=== PATIENT | male | born 1960 | race Caucasian/White ===

== ENCOUNTER 2017-05-23 01:18 | Inpatient (IN) | payer MEDICARE ==
[2017-05-23 01:34] VITALS: BMI 27.8
--- NOTE | 2017-05-23 01:44 | C.PDOC ---
History Of Present Illness 56 year old male with Hx of hepatitis, cirrhosis and liver cancer presents to the ED requesting detox for alcohol and heroin use. Patient denies any IV drug use and states he has not follow up recently with his PMD regarding his chronic conditions. Patient denies any previous hx of seizure or withdrawal .Denies SI/ HI, hallucinations, physical complaints. Time Seen by Provider: 05/23/17 01:35 Chief Complaint (Nursing): Substance Abuse History Per: Patient History/Exam Limitations: no limitations Onset/Duration Of Symptoms: Hrs Current Symptoms Are (Timing): Gone Modifying Factor(s): Alcohol, Other (Heroin) Associated Symptoms: denies: Depression, Suicidal Thoughts, Suicidal Plan Recent travel outside of the [place]: No Additional History Per: Patient Past Medical History Reviewed: Historical Data, Nursing Documentation, Vital Signs Vital Signs: Last Vital Signs Temp 98.8 F 05/23/17 05:19 Pulse 76 05/23/17 05:19 Resp 20 05/23/17 05:19 BP 127/65 05/23/17 05:19 Pulse Ox 95 05/23/17 05:20 - Medical History Other PMH: Liver cancer, cirrhosis Surgical History: No Surg Hx Family History: States: Unknown Family Hx - Social History Hx Tobacco Use: Yes Hx Alcohol Use: Yes Hx Substance Use: Yes (heroin and crack) - Immunization History Hx Tetanus Toxoid Vaccination: No Hx Influenza Vaccination: Yes Hx Pneumococcal Vaccination: No Review Of Systems Constitutional: Negative for: Fever, Chills Cardiovascular: Negative for: Chest Pain, Palpitations Respiratory: Negative for: Cough Gastrointestinal: Negative for: Nausea, Vomiting, Abdominal Pain Skin: Negative for: Rash Neurological: Negative for: Weakness, Numbness Psych: Negative for: Depression, Suicidal ideation Physical Exam - Physical Exam Appears: Non-toxic, No Acute Distress, Unkempt Skin: Normal Color, Warm, Dry Head: Atraumatic, Normacephalic Eye(s): bilateral: Normal Inspection, EOMI Nose: No Discharge, No Deformity Oral Mucosa: Moist Neck: Normal ROM, Supple Chest: Symmetrical Cardiovascular: Rhythm Regular Respiratory: Normal Breath Sounds, No Rales, No Rhonchi, No Wheezing Gastrointestinal/Abdominal: Soft, No Tenderness, No Guarding, No Rebound Extremity: Normal ROM, No Pedal Edema, No Calf Tenderness, No Deformity, No Swelling Neurological/Psych: Oriented x3, Normal Speech, Normal Cognition Gait: Steady ED Course And Treatment - Laboratory Results Result Diagrams: 05/23/17 02:04 05/23/17 05:08 O2 Sat by Pulse Oximetry: 95 (On RA) - CT Scan/US US abdomen Other Rad Studies (CT/US): Read By Radiologist, Radiology Report Reviewed CT/US Interpretation: EXAM: US Abdomen Limited, Right Upper Quadrant. CLINICAL HISTORY: 56 years old, male; Pain; Abdominal pain; Generalized; Additional info: Ruq pain, h/o ca. TECHNIQUE: Real-time ultrasound of the right upper quadrant with image documentation. COMPARISON: No relevant prior studies available. FINDINGS: Limitations: Body habitus. Overlying bowel gas. Liver: Fatty infiltration. Several heterogeneous masses, up to 7.0 cm in size. No intrahepatic ductal. dilatation. Gallbladder: Gallbladder not visualized. Common bile duct: No dilatation. No stones. Pancreas: Unremarkable as visualized. Right kidney: Normal echogenicity. No hydronephrosis. IMPRESSION: 1. Hepatic lesions compatible with history of malignancy/metastases. 2. Incidental/non-acute findings are described above. Progress Note: Plan: -Labs. -UA. -IV fluids. Pt will be admitted to medicine for hyponatremia with detox consult. Disposition - Disposition Disposition: HOSPITALIZED Disposition Time: 06:02 Condition: STABLE Forms: [facility] ([place]) - Clinical Impression Clinical Impression: Opioid dependence, Hyponatremia, Elevated LFTs - PA / CLOTH PACKER / Resident Statement MD/DO has reviewed & agrees with the documentation as recorded. - Scribe Statement The provider has reviewed the documentation as recorded by the Scribe Servando Bender All medical record entries made by the Scribe were at my direction and personally dictated by me. I have reviewed the chart and agree that the record accurately reflects my personal performance of the history, physical exam, medical decision making, and the department course for this patient. I have also personally directed, reviewed, and agree with the discharge instructions and disposition.
[2017-05-23 02:07] LABS: BASO # 0.1 K/uL (0.0-0.2); BASO % 0.8 % (0.0-2.0); EOS # 0.1 K/uL (0.0-0.7); EOS % 0.6 % (0.0-4.0); HEMOGLOBIN 14.3 g/dL (12.0-18.0); MEAN CELL VOLUME 91.4 fL (80.0-94.0); MEAN CORPUSCULAR HEMOGLOBIN 31.9 pg (27.0-31.0); MEAN CORPUSCULAR HGB CONC 34.9 g/dL (33.0-37.0); MEAN PLATELET VOLUME 9.5 fL (7.2-11.7); MONO # 0.7 K/uL (0.0-0.8); MONO % 7.9 % (0.0-10.0); NEUT # 6.5 K/uL (1.8-7.0); NEUT % 78.7 % (50.0-75.0); RBC 4.47 Mil/uL (4.40-5.90); RED CELL DISTRIBUTION WIDTH 15.1 % (11.5-14.5); WHITE BLOOD COUNT 8.3 K/uL (4.8-10.8)
[2017-05-23 02:17] LABS: SQUAMOUS EPITHIAL 2 /hpf (0-5); URINE BILIRUBIN 1+ (NEGATIVE); URINE CLARITY Clear (Clear); URINE COLOR Amber (YELLOW); URINE GLUCOSE (UA) NORMAL (Normal); URINE LEUKOCYTE ESTERASE NEG Leu/uL (Negative); URINE NITRATE NEGATIVE (NEGATIVE); URINE PROTEIN 1+ mg/dL (NEGATIVE)
[2017-05-23 02:19] LABS: URINE BLOOD NEGATIVE (NEGATIVE)
[2017-05-23 02:27] LABS: ALB/GLOB RATIO 0.9 (1.0-2.1); ALBUMIN 3.5 g/dL (3.5-5.0); ALT/SGPT 147 U/L (21-72); AST/SGOT 167 U/L (17-59); BARBITURATES, UR NEGATIVE (NEGATIVE); BENZODIAZEPINES, UR NEGATIVE (NEGATIVE); BLOOD UREA NITROGEN 21 mg/dL (9-20); GFR AFRICAN-AMERICAN > 60; GFR NON-AFRICAN AMERICAN > 60; PHENCYCLIDINE, UR NEGATIVE (NEGATIVE)
[2017-05-23] MEDS ORDERED: Sodium Chloride 0.9% 1,000 ML IV ONE ×2 (02:31→02:55)
[2017-05-23] MEDS ORDERED: Sodium Chloride 0.9% 1,000 ML ONE ×2 (02:42→03:39)
[2017-05-23 02:56] LABS: OPIATES, UR POSITIVE (NEGATIVE)
--- NOTE | 2017-05-23 05:19 | US ---
EXAM: US Abdomen Limited, Right Upper Quadrant CLINICAL HISTORY: 56 years old, male; Pain; Abdominal pain; Generalized; Additional info: Ruq pain, h/o ca TECHNIQUE: Real-time ultrasound of the right upper quadrant with image documentation. COMPARISON: No relevant prior studies available. FINDINGS: Limitations: Body habitus. Overlying bowel gas. Liver: Fatty infiltration. Several heterogeneous masses, up to 7.0 cm in size. No intrahepatic ductal dilatation. Gallbladder: Gallbladder not visualized. Common bile duct: No dilatation. No stones. Pancreas: Unremarkable as visualized. Right kidney: Normal echogenicity. No hydronephrosis. IMPRESSION: 1. Hepatic lesions compatible with history of malignancy/metastases. 2. Incidental/non-acute findings are described above.
[2017-05-23 05:24] LABS: ALT/SGPT 134 U/L (21-72); AST/SGOT 144 U/L (17-59); BLOOD UREA NITROGEN 20 mg/dL (9-20); CALCIUM 7.4 mg/dl (8.6-10.4); GFR AFRICAN-AMERICAN > 60; GFR NON-AFRICAN AMERICAN > 60
[2017-05-23 05:25] LABS: ALB/GLOB RATIO 0.8 (1.0-2.1)
[2017-05-23] MEDS ORDERED: Multivitamin (MVI) 10 ML, Thiamine 100 MG, Folic Acid 1 MG in Sodium Chloride 0.9% 1,00... IV ONE ×2 (09:19→10:00)
[2017-05-23 12:08] LABS: INR 1.6; PROTHROMBIN TIME 18.8 SECONDS (9.7-12.2)
--- NOTE | 2017-05-23 16:41 | CP.PCM.HP ---
History of Present Illness - History of Present Illness History of Present Illness: Dr. Sparks's Service, Onur Vidales, Teaching Associate-PGY-1 CC: Alcohol withdrawal and heroin detox Patient is a 56-year-old male with a PMHx of hepatitis, cirrhosis, and liver cancer who presents to the ED requesting detox for alcohol and heroin use. Patient states that he gets really bad runs, and clarifies that when he withdraws from alcohol, the gets diarrhea, chest pain, a runny nose, abdominal pain, nausea and vomiting. The chest pain comes and goes and is worse with inspiration. He denies any seizure history. Patient drinks alcohol and uses heroin daily, and frequently uses cocaine. He denies suicidal ideations and hallucinations. Patient states that he has two daughters and that he has been hiding these habits from them. He says that he needs to stop for them. Patient says that hes tried Suboxone from the streets and has never used methadone. Patient was diagnosed with liver cancer 20 years ago and was treated with Nexavar chemotherapy pills. He states that he hasnt seen a doctor for a long time and hasnt received treatment for his liver cancer for over 8 years. Patient denies any shortness of breath, headaches, fevers, chills, abdominal pain, nausea, vomiting, changes in vision, or any other complaints. Past medical history: Hepatitis, Cirrhosis, Liver cancers Medications: MAR reviewed. Allergies: Olvin Past surgical history: Bilateral knee surgeries, appendectomy Family History: Denies Social history: Tobacco 1/2 pack for 42 years. Drinks 3, 32oz. beer Present on Admission - Present on Admission Any Indicators Present on Admission: No Review of Systems - Constitutional Constitutional: absent: Chills, Headache, Night Sweats, Snoring, Weakness - EENT Eyes: absent: Blurred Vision, Discharge, Sees Flashes, Other Visual Disturbances , Loss of Vision Ears: absent: Decreased Hearing, Disequilibrium, Dizziness Nose/Mouth/Throat: absent: Nasal Congestion, Nose Pain, Bleeding Gums, Halitosis , Mouth Pain, Neck Pain - Cardiovascular Cardiovascular: Chest Pain. absent: Diaphoresis, Irregular Heart Rhythm, Leg Edema, Palpitations, Syncope - Respiratory Respiratory: absent: Hemoptysis, Wheezing, Snoring, Pain on Inspiration - Gastrointestinal Gastrointestinal: absent: Belching, Diarrhea, Dyspepsia, Fecal Incontinence, Vomiting - Genitourinary Genitourinary: absent: Change in Urinary Stream, Nocturia, Urinary Urgency - Musculoskeletal Musculoskeletal: absent: Arthralgias, Stiffness, Tingling - Integumentary Integumentary: absent: Rash - Neurological Neurological: absent: Dizziness, Numbness, Syncope, Vertigo, Weakness - Psychiatric Psychiatric: absent: Anxiety, Hopelessness, Panic Attacks - Endocrine Endocrine: absent: Polydipsia, Polyphagia, Polyuria Past Patient History - Infectious Disease Hx of Infectious Diseases: None - Past Medical History & Family History Past Medical History?: Yes - Past Social History Smoking Status: Heavy Smoker > 10 Cigarettes Daily - CARDIAC Hx Cardiac Disorders: No - PULMONARY Hx Respiratory Disorders: No - NEUROLOGICAL Hx Neurological Disorder: No - HEENT Hx HEENT Problems: No - RENAL Hx Chronic Kidney Disease: No - ENDOCRINE/METABOLIC Hx Endocrine Disorders: No - HEMATOLOGICAL/ONCOLOGICAL Hx AIDS: No Hx Anemia: No Hx Blood Transfusions: No Hx Blood Transfusion Reaction: No Hx Bruising: No Hx Cancer: Yes (liver) Hx Chemotherapy: No Hx Cirrhosis: Yes Hx Gum Bleeding: No Hx Hemophilia: No Hx Hepatitis A: No Hx Hepatitis B: No Hx Hepatitis C: Yes Hx Human Immunodeficiency Virus (HIV): No Hx Leukemia: No Hx Metastesis: No Hx Shingles: No Hx Sickle Cell Disease: No Hx Unexplained Bleeding: No Hx von Willebrand's Disease: No - INTEGUMENTARY Hx Dermatological Problems: No - MUSCULOSKELETAL/RHEUMATOLOGICAL Hx Musculoskeletal Disorders: No Hx Falls: No - GASTROINTESTINAL Hx Bowel Surgery: No Hx Clostridium Difficile: No Hx Colitis: No Hx Colostomy: No Hx Constipation: No Hx Crohn's Disease: No Hx Diarrhea: No Hx Diverticulitis: No Hx Esophageal Varices: No Hx Fatty Liver Disease: No Hx Gall Bladder Disease: No Hx Gastritis: No Hx Gastroesophageal Reflux: No Hx Hemorrhoids: No Hx Ileostomy: No Hx Irritable Bowel: No Hx Liver Failure: No Hx Nausea: No Hx Pancreatitis: No HX Swallowing Problems: No Hx Ulcer: No Hx Vomiting: No Other/Comment: H/O hepatitis,cirrhosis and Liver Cancer - GENITOURINARY/GYNECOLOGICAL Hx Genitourinary Disorders: No - PSYCHIATRIC Hx Anxiety: No Hx Bipolar Disorder: No Hx Depression: No Hx Emotional Abuse: No Hx Hallucinations: No Hx Panic Symptoms: No Hx Paranoia: No Hx Post Traumatic Stress Disorder: No Hx Psychosis: No Hx Physical Abuse: No Hx Schizophrenia: No Hx Sexual Abuse: No Hx Substance Use: Yes (heroin and crack) - SURGICAL HISTORY Hx Surgeries: Yes Hx Orthopedic Surgery: Yes (L knee and L ankle) - ANESTHESIA Hx Anesthesia: Yes Hx Anesthesia Reactions: No Hx Malignant Hyperthermia: No Has any member of the family had a problem w/ anesthesia?: No Meds Allergies/Adverse Reactions: Allergies Allergy/AdvReac Type Severity Reaction Status Date / Time No Known Allergies Allergy Verified 05/23/17 01:33 Physical Exam - Head Exam Head Exam: ATRAUMATIC, NORMAL INSPECTION, NORMOCEPHALIC - Eye Exam Eye Exam: EOMI, Normal appearance, PERRL. absent: Periorbital tenderness Pupil Exam: NORMAL ACCOMODATION, PERRL. absent: Irregular, Unequal - ENT Exam ENT Exam: Mucous Membranes Moist, Normal Oropharynx - Neck Exam Neck exam: Positive for: Normal Inspection. Negative for: Lymphadenopathy, Thyromegaly - Respiratory Exam Respiratory Exam: Clear to Auscultation Bilateral, NORMAL BREATHING PATTERN. absent: Chest Wall Tenderness, Prolonged Expiratory Phase, Respiratory Distress - Cardiovascular Exam Cardiovascular Exam: REGULAR RHYTHM, RRR, +S1, +S2. absent: Gallop, Rubs - GI/Abdominal Exam GI & Abdominal Exam: Normal Bowel Sounds, Soft. absent: Distended, Hypoactive Bowel Sounds, Organomegaly, Rigid - Extremities Exam Extremities exam: Positive for: full ROM, normal inspection. Negative for: joint swelling, pedal edema, tenderness - Back Exam Back exam: NORMAL INSPECTION. absent: CVA tenderness (L), CVA tenderness (R), paraspinal tenderness - Neurological Exam Neurological exam: Alert, CN II-XII Intact, Oriented x3 - Psychiatric Exam Psychiatric exam: Normal Affect, Normal Mood - Skin Skin Exam: Dry, Intact, Normal Color, Warm Results - Vital Signs Recent Vital Signs: Last Vital Signs Temp 98.3 F 05/23/17 08:10 Pulse 78 05/23/17 08:10 Resp 20 05/23/17 08:10 BP 116/68 05/23/17 08:10 Pulse Ox 97 05/23/17 08:10 - Labs Result Diagrams: 05/23/17 02:04 05/23/17 05:08 Labs: Laboratory Results - last 24 hr 05/23/17 05/23/17 05/23/17 02:04 02:04 02:04 WBC 8.3 RBC 4.47 Hgb 14.3 Hct 40.8 MCV 91.4 D MCH 31.9 H MCHC 34.9 RDW 15.1 H Plt Count 126 L D MPV 9.5 Neut % (Auto) 78.7 H Lymph % (Auto) 12.0 L [place] % (Auto) 7.9 Eos % (Auto) 0.6 Baso % (Auto) 0.8 Neut # 6.5 Lymph # 1.0 [place] # 0.7 Eos # 0.1 Baso # 0.1 PT INR Sodium 125 L Potassium 4.6 Chloride 95 L Carbon Dioxide 21 L Anion Gap 14 BUN 21 H Creatinine 1.0 Est GFR ( Amer) > 60 Est GFR (Non-Af Amer) > 60 Random Glucose 112 H Calcium 8.0 L Total Bilirubin 3.1 H AST 167 H ALT 147 H D Alkaline Phosphatase 169 H Total Protein 7.5 Albumin 3.5 Globulin 3.9 Albumin/Globulin Ratio 0.9 L Urine Color [place] Urine Clarity Clear Urine pH 5.0 Ur Specific [place] 1.024 Urine Protein 1+ H Urine Glucose (UA) Normal Urine Ketones Negative Urine Blood Negative Urine Nitrate Negative Urine Bilirubin 1+ H Urine Urobilinogen 4.0 Ur Leukocyte Esterase Neg Urine WBC (Auto) 16 H Urine RBC (Auto) 2 Ur Squamous Epith Cells 2 Urine Opiates Screen Urine Methadone Screen Ur Barbiturates Screen Ur Phencyclidine Scrn Ur Amphetamines Screen U Benzodiazepines Scrn U Oth Cocaine Metabols U Cannabinoids Screen Alcohol, Quantitative < 10 05/23/17 05/23/17 05/23/17 02:04 05:08 11:53 WBC RBC Hgb Hct MCV MCH MCHC RDW Plt Count MPV Neut % (Auto) Lymph % (Auto) [place] % (Auto) Eos % (Auto) Baso % (Auto) Neut # Lymph # [place] # Eos # Baso # PT 18.8 H INR 1.6 Sodium 126 L Potassium 4.0 Chloride 99 Carbon Dioxide 24 Anion Gap 7 L BUN 20 Creatinine 0.9 Est GFR ( Amer) > 60 Est GFR (Non-Af Amer) > 60 Random Glucose 101 Calcium 7.4 L Total Bilirubin 2.1 H AST 144 H ALT 134 H Alkaline Phosphatase 151 H Total Protein 6.5 Albumin 3.0 L Globulin 3.5 Albumin/Globulin Ratio 0.8 L Urine Color Urine Clarity Urine pH Ur Specific [place] Urine Protein Urine Glucose (UA) Urine Ketones Urine Blood Urine Nitrate Urine Bilirubin Urine Urobilinogen Ur Leukocyte Esterase Urine WBC (Auto) Urine RBC (Auto) Ur Squamous Epith Cells Urine Opiates Screen Positive H Urine Methadone Screen Negative Ur Barbiturates Screen Negative Ur Phencyclidine Scrn Negative Ur Amphetamines Screen Negative U Benzodiazepines Scrn Negative U Oth Cocaine Metabols Positive H U Cannabinoids Screen Negative Alcohol, Quantitative Assessment & Plan - Assessment and Plan (Free Text) Assessment: 56 year old male with a past medical history of hepatitis, liver cirrhosis, liver carcinoma who was admitted for detox from alcohol and heroin abuse. Plan: Alcohol withdrawal/ Heroin Detox -CIWA Precautions -Fall precautions -Seizure precautions -Ativan 1mg Q2 PRN -Ativan 2mg Q6 JOSE ANGEL -Patient agreeable to detox. Liver Cancer -Patient was diagnosed 20 years ago. -Patient no longer reciving treatment due to financial constraints. -Consider Liver Specialist consult if necessary in the future. Liver Cirrhosis 2/2 to Alcohol Abuse -Patient currently not being followed by a specialist. -Stable -Consider GI consult. Prophylaxis -Heparin 500units Q12 -Pepcid 20mg BID
[2017-05-24 08:38] LABS: BASO # 0.1 K/uL (0.0-0.2); BASO % 1.9 % (0.0-2.0); EOS % 0.5 % (0.0-4.0); HEMOGLOBIN 13.8 g/dL (12.0-18.0); LYMPH # 0.7 K/uL (1.0-4.3); LYMPH % 12.7 % (20.0-40.0); MEAN CELL VOLUME 90.7 fL (80.0-94.0); MEAN CORPUSCULAR HGB CONC 35.3 g/dL (33.0-37.0); MEAN PLATELET VOLUME 9.8 fL (7.2-11.7); MONO # 0.5 K/uL (0.0-0.8); MONO % 9.2 % (0.0-10.0); NEUT # 4.3 K/uL (1.8-7.0); NEUT % 75.7 % (50.0-75.0); NRBC % 0.1 % (0.0-2.0); RBC 4.32 Mil/uL (4.40-5.90); RED CELL DISTRIBUTION WIDTH 15.3 % (11.5-14.5); WHITE BLOOD COUNT 5.7 K/uL (4.8-10.8)
[2017-05-24 09:08] LABS: ALB/GLOB RATIO 0.8 (1.0-2.1); ALT/SGPT 129 U/L (21-72); AST/SGOT 150 U/L (17-59); BLOOD UREA NITROGEN 13 mg/dL (9-20); CALCIUM 7.8 mg/dl (8.6-10.4); GFR AFRICAN-AMERICAN > 60; GFR NON-AFRICAN AMERICAN > 60
[2017-05-24] MEDS ORDERED: Multivitamin (MVI) 10 ML, Thiamine 100 MG, Folic Acid 1 MG in Sodium Chloride 0.9% 1,00... IV ONE (10:00)
--- NOTE | 2017-05-24 19:31 | CP.PCM.PN ---
<Onur Vidales - Last Filed: 05/24/17 19:35> Subjective - Date & Time of Evaluation Date of Evaluation: 05/24/17 Time of Evaluation: 08:31 - Subjective Subjective: Dr. Sparks's Service, Onur Vidales Accounts Specialist-PGY1 Patient seen and examined at bedside. Per nursing no acute events occurred overnight. The patient is reports not feeling too well today. The patient repots one episode of diarrhea today. The patient denies any lightheadedness , dizziness ,changes in vision, headache, chest pain, fevers, chills, abdominal pain, or any other complaints. Objective - Vital Signs/Intake and Output Vital Signs (last 24 hours): Temp Pulse Resp BP Pulse Ox 98.9 F 73 20 138/75 95 05/24/17 17:06 05/24/17 17:06 05/24/17 17:06 05/24/17 17:06 05/24/17 17:06 Intake and Output: 05/24/17 05/25/17 18:59 06:59 Intake Total 500 Balance 500 - Medications Medications: Current Medications Famotidine (Pepcid) 20 mg PO BID [facility] Last Admin: 05/24/17 17:11 Dose: 20 mg Heparin Sodium (Porcine) (Heparin) 5,000 units SC Q12 [facility] Last Admin: 05/24/17 10:59 Dose: 5,000 units Multivitamins/Vitamin C 10 ml/Thiamine HCl 100 mg/ Folic Acid 1 mg/ Sodium Chloride 1,011.2 mls @ 100 mls/hr IV .Q10H7M ONE Stop: 05/24/17 20:06 Last Admin: 05/24/17 11:36 Dose: 100 mls/hr Lorazepam (Ativan) 1 mg IVP Q2H PRN PRN Reason: Symptoms of alcohol withdrawl Last Admin: 05/24/17 10:59 Dose: 1 mg Lorazepam (Ativan) 2 mg IVP Q6H JOSE ANGEL PRN Reason: Taper Stop: 05/28/17 18:29 Last Admin: 05/24/17 17:56 Dose: 2 mg Pneumococcal Polyvalent Vaccine (Pneumovax 23 Vaccine) 0.5 ml IM .ONCE ONE Stop: 05/25/17 10:01 - Labs Labs: 05/24/17 08:21 05/24/17 08:21 PT 18.8 SECONDS (9.7-12.2) H 05/23/17 11:53 INR 1.6 05/23/17 11:53 - Head Exam Head Exam: ATRAUMATIC, NORMAL INSPECTION, NORMOCEPHALIC - Eye Exam Eye Exam: EOMI, Normal appearance, PERRL. absent: Periorbital tenderness Pupil Exam: NORMAL ACCOMODATION, PERRL. absent: Irregular, Unequal - ENT Exam ENT Exam: Mucous Membranes Moist, Normal Exam, Normal Oropharynx - Neck Exam Neck Exam: absent: Lymphadenopathy, Thyromegaly - Respiratory Exam Respiratory Exam: Clear to Ausculation Bilateral, NORMAL BREATHING PATTERN. absent: Chest Wall Tenderness, Prolonged Expiratory Phase, Respiratory Distress - Cardiovascular Exam Cardiovascular Exam: REGULAR RHYTHM, RRR, +S1, +S2. absent: Gallop - GI/Abdominal Exam GI & Abdominal Exam: Soft, Normal Bowel Sounds. absent: Rigid, Hyperactive Bowel Sounds - Extremities Exam Extremities Exam: Full ROM, Normal Inspection. absent: Joint Swelling, Pedal Edema, Tenderness - Back Exam Back Exam: NORMAL INSPECTION. absent: CVA tenderness (L), CVA tenderness (R), paraspinal tenderness - Neurological Exam Neurological Exam: Alert, Awake, CN II-XII Intact, Normal Gait, Oriented x3 - Psychiatric Exam Psychiatric exam: Normal Affect, Normal Mood. absent: Depressed, Flat Affect - Skin Skin Exam: Dry, Intact, Normal Color Assessment and Plan - Assessment and Plan (Free Text) Assessment: 56 year old male with a past medical history of hepatitis, liver cirrhosis, liver carcinoma who was admitted for detox from alcohol and heroin abuse. Plan: Alcohol withdrawal/ Heroin Detox -Continue CIWA Precautions -Continue Fall precautions -Seizure precautions -Ativan 1mg Q2 PRN -Ativan 2mg Q6 JOSE ANGEL -Patient agreeable to detox. Patient stable. No active signs of detox. Will continue to monitor. Liver Cancer -Patient was diagnosed 20 years ago. -Patient no longer receiving treatment due to financial constraints. -Consider Liver Specialist consult if necessary in the future. Liver Cirrhosis 2/2 to Alcohol Abuse -Patient currently not being followed by a specialist. -Stable -Consider GI consult. Prophylaxis -Heparin 500units Q12 -Pepcid 20mg BID <Taye Sparks Jr. - Last Filed: 05/30/17 19:15> Objective - Vital Signs/Intake and Output Vital Signs (last 24 hours): Temp Pulse Resp BP Pulse Ox 97.2 F L 68 18 123/77 98 05/30/17 09:59 05/30/17 09:59 05/30/17 09:59 05/30/17 09:59 05/30/17 09:59 - Labs Labs: 05/30/17 08:39 05/30/17 08:39 PT 18.8 SECONDS (9.7-12.2) H 05/23/17 11:53 INR 1.6 05/23/17 11:53 Attending/Attestation - Attestation I have personally seen and examined this patient.: Yes I have fully participated in the care of the patient.: Yes I have reviewed all pertinent clinical information, including history, physical exam and plan: Yes Notes (Text): 05/30/17 19:15 Agree with resident note and plan of care
--- NOTE | 2017-05-25 06:37 | CP.PCM.PN ---
<Susie Stoner - Last Filed: 05/25/17 06:34> Subjective - Date & Time of Evaluation Date of Evaluation: 05/25/17 Time of Evaluation: 06:34 - Subjective Subjective: Medicine progress note for Dr. Sparks's service Patient was seen and examined at bedside in the morning. Patient reports feeling withdrawal symptoms, nausea, feeling like he wants to vomit, chills, and diarrhea. Patient denies having chest pain, abdominal pain, shortness of breath, leg pain. Objective - Vital Signs/Intake and Output Vital Signs (last 24 hours): Temp Pulse Resp BP Pulse Ox 99.2 F 74 20 117/60 96 05/25/17 00:00 05/25/17 00:00 05/25/17 00:00 05/25/17 00:00 05/25/17 00:00 Intake and Output: 05/24/17 05/25/17 18:59 06:59 Intake Total 500 440 Balance 500 440 - Medications Medications: Current Medications Famotidine (Pepcid) 20 mg PO BID [facility] Last Admin: 05/24/17 17:11 Dose: 20 mg Heparin Sodium (Porcine) (Heparin) 5,000 units SC Q12 [facility] Last Admin: 05/24/17 21:59 Dose: 5,000 units Lorazepam (Ativan) 1 mg IVP Q2H PRN PRN Reason: Symptoms of alcohol withdrawl Last Admin: 05/24/17 10:59 Dose: 1 mg Lorazepam (Ativan) 2 mg IVP Q6H [facility] PRN Reason: Taper Stop: 05/28/17 18:29 Last Admin: 05/25/17 06:22 Dose: 2 mg Pneumococcal Polyvalent Vaccine (Pneumovax 23 Vaccine) 0.5 ml IM .ONCE ONE Stop: 05/25/17 10:01 - Labs Labs: 05/24/17 08:21 05/24/17 08:21 PT 18.8 SECONDS (9.7-12.2) H 05/23/17 11:53 INR 1.6 05/23/17 11:53 - Constitutional Appears: Other (withdrawal) - Head Exam Head Exam: ATRAUMATIC, NORMOCEPHALIC - Eye Exam Eye Exam: EOMI - ENT Exam ENT Exam: Mucous Membranes Moist - Respiratory Exam Respiratory Exam: NORMAL BREATHING PATTERN. absent: Rales, Rhonchi, Wheezes, Respiratory Distress - Cardiovascular Exam Cardiovascular Exam: REGULAR RHYTHM, +S1, +S2 - GI/Abdominal Exam GI & Abdominal Exam: Soft, Normal Bowel Sounds. absent: Distended, Firm, Guarding, Tenderness - Extremities Exam Extremities Exam: absent: Pedal Edema, Tenderness - Neurological Exam Neurological Exam: Alert, Awake - Psychiatric Exam Psychiatric exam: Anxious - Skin Skin Exam: Diaphoretic, Intact, Warm Assessment and Plan - Assessment and Plan (Free Text) Plan: Assessment: 56 year old male with a past medical history of hepatitis, liver cirrhosis, liver carcinoma who was admitted for detox from alcohol and heroin abuse. Patient was not taken to detox due to hyponatremia. Patient waiting to go to detox. Psychiatry consulted. Plan: Alcohol withdrawal/ Heroin Detox -Continue CIWA Precautions -Continue Fall precautions -Seizure precautions -Ativan 1mg Q2 PRN -Ativan 2mg Q6 JOSE ANGEL -Patient agreeable to detox. Patient stable. No active signs of detox. Will continue to monitor. -Clonidine 0.1mg PO once prn for withdrawal symptoms ordered (05/25/17) -Psychiatry consulted; Dr. Beckham Liver Cancer -Patient was diagnosed 20 years ago. -Patient no longer receiving treatment due to financial constraints. -Consider Liver Specialist consult if necessary in the future. Liver Cirrhosis 2/2 to Alcohol Abuse -Patient currently not being followed by a specialist. -Stable -Consider GI consult. Prophylaxis -Heparin 500units Q12 -Pepcid 20mg BID <Taye Sparks Jr. - Last Filed: 05/30/17 19:17> Objective - Vital Signs/Intake and Output Vital Signs (last 24 hours): Temp Pulse Resp BP Pulse Ox 97.2 F L 68 18 123/77 98 05/30/17 09:59 05/30/17 09:59 05/30/17 09:59 05/30/17 09:59 05/30/17 09:59 - Labs Labs: 05/30/17 08:39 05/30/17 08:39 PT 18.8 SECONDS (9.7-12.2) H 05/23/17 11:53 INR 1.6 05/23/17 11:53 Attending/Attestation - Attestation I have personally seen and examined this patient.: Yes I have fully participated in the care of the patient.: Yes I have reviewed all pertinent clinical information, including history, physical exam and plan: Yes Notes (Text): 05/30/17 19:17 Agree with resident note and plan of care
--- NOTE | 2017-05-25 09:36 | PCM.PSYCH ---
Initial Psychiatric Evaluation - Initial Psychiatric Evaluation Type of Admission: Voluntary Chief Complaint (in patient's own words): "Tired" History of Present Illness and Precipitating Events: The pt is seen, chart reviewed and case discussed Consult was requested for his alcohol and opioid use. He is a 56 yo LM, single with children. Very poor historian due to worsening cognition, sedated and somewhat confused He is put on ativan taper for alcohol but methadone taper was not started as he did not have significant withdrawal yesterday. However, now, he is withdrawing from both alcohol and opioids. He is also running a fever and may have an infection. On top of that his Na is low, liver is impaired (liver cancer confirmed and had been treated in the past; r/o hepatitis). Therefore, he is likely getting into delirium from multiple causes. He reported that he uses cocaine and 10 bags heroin for "years" both intranasally. He was not clear about alcohol - "3 cans of 33 oz" but it may be more. No hx of DTs or seizures - needs to be confirmed Denies psych hx Medical - liver cancer Family psych or addiction unknown Current Medications: Active Medications Generic Name Dose Route Start Last Admin Trade Name Freq PRN Reason Stop Dose Admin Clonidine HCl 0.1 mg 05/25/17 06:48 05/25/17 07:13 Catapres PO 0.1 mg ONCE PRN Administration Nausea/Vomiting Famotidine 20 mg 05/23/17 18:00 05/24/17 17:11 Pepcid PO 20 mg BID JOSE ANGEL Administration Heparin Sodium (Porcine) 5,000 units 05/23/17 22:00 05/24/17 21:59 Heparin SC 5,000 units Q12 JOSE ANGEL Administration Lorazepam 1 mg 05/23/17 09:18 05/24/17 10:59 Ativan IVP 1 mg Q2H PRN Administration Symptoms of alcohol withdrawl Lorazepam 0 mg 05/25/17 12:00 Ativan PO 05/29/17 11:59 .TAPER JOSE ANGEL Taper Methadone HCl 20 mg 05/25/17 09:45 Methadone PO 05/25/17 09:46 ONCE ONE Methadone HCl 0 mg 05/26/17 09:00 Methadone PO 05/30/17 08:59 Q24H JOSE ANGEL Taper Pneumococcal Polyvalent Vaccine 0.5 ml 05/25/17 10:00 Pneumovax 23 Vaccine IM 05/25/17 10:01 .ONCE ONE Past Psychiatric History - Past Psychiatric History Previous Treatment History: None Pertinent Medical Hx (Current Medical&Sleep Prob, Allergies): Allergies Allergy/AdvReac Type Severity Reaction Status Date / Time No Known Allergies Allergy Verified 05/23/17 01:33 No Known Home Med 05/23/17 Review of Systems - Review of Systems Systems not reviewed;Unavailable: Altered Mental Status - Neurological Neurological: Confusion - Psychiatric Psychiatric: Abnormal Sleep Pattern, Anxiety, Confusion. absent: Homicidal Ideation, Suicidal Ideation Mental Status Examination - Personal Presentation Personal Presentation: Looks stated age (restless, malodorous, poorly related) - Affect Affect: Constricted - Motor Activity Motor Activity: Other (restless) - Reliability in Providing Information Reliability in Providing Information: Fair - Speech Speech: Disorganized - Mood Mood: Anxious - Formal Thought Process Formal Thought Process: Other (disorganized) - Cognitive Functions Orientation: Person, Place (knows he is in the hospital) Sensorium: Drowsy Attention/Concentration: Easily distracted Abstract Thinking: [place] Estimate of Intelligence: Average Judgement: Intact, as evidence by: Insight regarding need for hospitalization Memory: Recent impaired, as evidence by: Inability to recall events of the day, Remote impaired as evidenced by: Inability to recall sig life events - Risk Risk: Seizure, Withdrawal, Diminished functioning - Strength & Assets Inventory Strength & Assets Inventory: Family support DSM 5 DX - DSM 5 DSM 5 Diagnosis: Delirium due to: rule out hepatic encephalopathy, hyponatremia, infection, DT, others Alcohol withdrawal Alcohol use d/o - severe Opioid use d/o - severe Opioid withdrawal Cocaine use d/o - severe - Recommended/Plan of Treatment Treatment Recommendations and Plan of Treatment: Close observation Consider 1:1 if mental status worsens IV fluids - stat (nurse made aware) Banana bag use motrin, not tylenol due to liver Treat underlying conditions (hyponatremia) Labs are ordered Ativan taper adjusted Methadone taper stated 35 min
[2017-05-25] MEDS ORDERED: Sodium Chloride 0.9% 1,000 ML IV ONE (09:45)
[2017-05-25] MEDS ORDERED: Influenza Vaccine 60 mcg/0.5 mL SYR (4YR UP) IM ONE (10:00)
[2017-05-25] MEDS ORDERED: Pneumococcal 23-Valent Vaccine IM ONE (10:00)
[2017-05-25 10:57] LABS: BASO % 0.5 % (0.0-2.0); EOS % 0.1 % (0.0-4.0); HEMOGLOBIN 13.5 g/dL (12.0-18.0); LYMPH # 0.8 K/uL (1.0-4.3); LYMPH % 10.7 % (20.0-40.0); MEAN CELL VOLUME 90.2 fL (80.0-94.0); MEAN CORPUSCULAR HEMOGLOBIN 31.3 pg (27.0-31.0); MEAN CORPUSCULAR HGB CONC 34.7 g/dL (33.0-37.0); MEAN PLATELET VOLUME 9.9 fL (7.2-11.7); MONO # 0.5 K/uL (0.0-0.8); MONO % 6.4 % (0.0-10.0); NEUT # 6.5 K/uL (1.8-7.0); NEUT % 82.3 % (50.0-75.0); NRBC % 0.1 % (0.0-2.0); RBC 4.31 Mil/uL (4.40-5.90); RED CELL DISTRIBUTION WIDTH 15.2 % (11.5-14.5); WHITE BLOOD COUNT 7.9 K/uL (4.8-10.8)
[2017-05-25 11:14] LABS: ALT/SGPT 118 U/L (21-72); AST/SGOT 137 U/L (17-59); BLOOD UREA NITROGEN 15 mg/dL (9-20); CALCIUM 7.8 mg/dl (8.6-10.4); GFR AFRICAN-AMERICAN > 60; GFR NON-AFRICAN AMERICAN > 60
[2017-05-25 11:29] LABS: ALB/GLOB RATIO 0.8 (1.0-2.1)
[2017-05-25 12:15] LABS: HEPATITIS B SURFACE AG NEGATIVE (NEGATIVE)
[2017-05-25 12:21] LABS: HEPATITIS B CORE AB Negative (NEGATIVE)
[2017-05-25 13:45] LABS: HEPATITIS A IGM REACTIVE (NEGATIVE); HEPATITIS C ANTIBODY Reactive (NEGATIVE)
[2017-05-25 20:04] LABS: SQUAMOUS EPITHIAL < 1 /hpf (0-5); URINE BACTERIA RARE (<OCC); URINE BILIRUBIN NEGATIVE (NEGATIVE); URINE BLOOD 1+ (NEGATIVE); URINE CLARITY Clear (Clear); URINE COLOR Amber (YELLOW); URINE GLUCOSE (UA) NORMAL (Normal); URINE LEUKOCYTE ESTERASE NEG Leu/uL (Negative); URINE NITRATE NEGATIVE (NEGATIVE); URINE PROTEIN NEGATIVE (NEGATIVE)
--- NOTE | 2017-05-26 04:13 | CP.PCM.PN ---
<Susie Stoner - Last Filed: 05/26/17 04:08> Subjective - Date & Time of Evaluation Date of Evaluation: 05/26/17 Time of Evaluation: 04:08 - Subjective Subjective: Medicine progress note for Dr. Sparks's service Patient was seen and examined at bedside in the morning. Patient reports still feeling withdrawal symptoms, abdominal pain, nausea, fever, chills, and diarrhea. Patient appears confused and reports he occasionally hears voices that tell him "which direction to go in" but hasn't heard them recently. Objective - Vital Signs/Intake and Output Vital Signs (last 24 hours): Temp Pulse Resp BP Pulse Ox 99.4 F 80 20 121/72 97 05/26/17 01:16 05/26/17 01:16 05/26/17 01:16 05/26/17 00:04 05/26/17 01:16 - Medications Medications: Current Medications Clonidine HCl (Catapres) 0.1 mg PO ONCE PRN PRN Reason: Nausea/Vomiting Last Admin: 05/25/17 07:13 Dose: 0.1 mg Famotidine (Pepcid) 20 mg PO BID [facility] Last Admin: 05/25/17 17:17 Dose: 20 mg Heparin Sodium (Porcine) (Heparin) 5,000 units SC Q12 [facility] Last Admin: 05/25/17 21:00 Dose: 5,000 units Lorazepam (Ativan) 1 mg IVP Q2H PRN PRN Reason: Symptoms of alcohol withdrawl Last Admin: 05/25/17 14:44 Dose: 1 mg Lorazepam (Ativan) 1 mg IVP Q4H JOSE ANGEL PRN Reason: Taper Stop: 05/30/17 11:59 Last Admin: 05/26/17 00:07 Dose: 1 mg Methadone HCl (Methadone) 15 mg PO Q24H JOSE ANGEL PRN Reason: Taper Stop: 05/30/17 08:59 - Labs Labs: 05/25/17 10:51 05/25/17 10:51 PT 18.8 SECONDS (9.7-12.2) H 05/23/17 11:53 INR 1.6 05/23/17 11:53 - Additional Findings Additional findings: - Constitutional Appears: Other (actively withdrawing) - Head Exam Head Exam: ATRAUMATIC, NORMOCEPHALIC - Eye Exam Eye Exam: EOMI - ENT Exam ENT Exam: Mucous Membranes Moist - Respiratory Exam Respiratory Exam: NORMAL BREATHING PATTERN. absent: Rales, Rhonchi, Wheezes, Respiratory Distress - Cardiovascular Exam Cardiovascular Exam: REGULAR RHYTHM, +S1, +S2 - GI/Abdominal Exam GI & Abdominal Exam: Soft, Normal Bowel Sounds. absent: Distended, Firm, Guarding, Tenderness - Extremities Exam Extremities Exam: absent: Pedal Edema, Tenderness - Neurological Exam Neurological Exam: Alert, Awake - Psychiatric Exam Psychiatric exam: Anxious, confused - Skin Skin Exam: Diaphoretic, Intact, Warm Assessment and Plan - Assessment and Plan (Free Text) Plan: 56 year old male with a past medical history of hepatitis, liver cirrhosis, liver carcinoma who was admitted for detox from alcohol and heroin abuse. Patient was not taken to detox due to hyponatremia. Patient waiting to go to detox. Psychiatry consulted. Plan: Alcohol withdrawal/ Heroin Detox -Continue CIWA Precautions -Continue Fall precautions -Seizure precautions -Ativan 1mg Q2 PRN -Ativan 1mg Q4 JOSE ANGEL -Clonidine 0.1mg PO once prn for withdrawal symptoms ordered (05/25/17) -Psychiatry consulted; Dr. Beckham -Started methadone daily on 05/25 -Started IVF and banana bag -Consider 1:1 if mental status declines -Will continue to monitor. Fever -secondary to withdrawal or underlying infection -Blood cx: f/u results -Urine cx: f/u results -Motrin 400mg PO given for fever -Ice packs or hypothermic blanket may be used Liver Cancer -Patient was diagnosed 20 years ago. -Patient no longer receiving treatment due to financial constraints. -Consider Liver Specialist consult if necessary in the future. -Abdominal US (05/23): hepatic lesions compatible with hx of malignancy/ metastases Liver Cirrhosis 2/2 to Alcohol Abuse -Patient currently not being followed by a specialist. -Stable -Consider GI consult. Prophylaxis -Heparin 500units Q12 -Pepcid 20mg BID -Regular diet <Taye Sparks Jr. - Last Filed: 05/30/17 19:19> Objective - Vital Signs/Intake and Output Vital Signs (last 24 hours): Temp Pulse Resp BP Pulse Ox 97.2 F L 68 18 123/77 98 05/30/17 09:59 05/30/17 09:59 05/30/17 09:59 05/30/17 09:59 05/30/17 09:59 - Labs Labs: 05/30/17 08:39 05/30/17 08:39 PT 18.8 SECONDS (9.7-12.2) H 05/23/17 11:53 INR 1.6 05/23/17 11:53 Attending/Attestation - Attestation I have personally seen and examined this patient.: Yes I have fully participated in the care of the patient.: Yes I have reviewed all pertinent clinical information, including history, physical exam and plan: Yes Notes (Text): 05/30/17 19:19 Agree with resident note and plan of care
[2017-05-26] MEDS ORDERED: Multivitamin (MVI) 10 ML, Thiamine 100 MG, Folic Acid 1 MG in Sodium Chloride 0.9% 1,00... IV ONE (08:36)
[2017-05-26 09:09] LABS: MAGNESIUM 2.3 mg/dL (1.6-2.3)
[2017-05-26] MEDS ORDERED: Ergocalciferol 50,000 Intl Units Cap PO SCH (09:30)
[2017-05-26 12:57] LABS: ALB/GLOB RATIO 0.8 (1.0-2.1); ALBUMIN 3.1 g/dL (3.5-5.0); ALT/SGPT 119 U/L (21-72); AST/SGOT 147 U/L (17-59); BLOOD UREA NITROGEN 19 mg/dL (9-20); CALCIUM 7.9 mg/dl (8.6-10.4); GFR AFRICAN-AMERICAN > 60; GFR NON-AFRICAN AMERICAN > 60
--- NOTE | 2017-05-26 13:18 | PCM.PYCHPN ---
Psychiatric Progress Note - Psychiatric Progress Note Patient seen today, length of contact: 16 min Patient Chief Complaint: "Better" Problems Identified/Issues Discussed: The pt is seen again, case discussed with the resident, chart reviewed. Labs were missing but otherwise he looked much better than yesterday. He has a fever night time but mostly afebrile and cultires are pending Labs came back later and Na has improved. His liver is "chronic" per medicine and Dr. Sparks will follow up Pt is eager to go to detox and get help He is oriented x3, speaking with her children on the phone Support given Transfer to detox with med consult Medication Change: Yes (detox changes daily) Medical Record Reviewed: Yes Mental Status Examination - Cognitive Function Orientation: Person, Place, Situation, Time Memory: Intact Attention: Poor Concentration: Poor Association: WNL - Mood Mood: Anxious - Affect Affect: Constricted - Speech Speech: Appropriate - Formal Thought Process Formal Thought Process: No Impairment - Suicidal Ideation Suicidal Ideation: No - Homicidal Ideation Homicidal Ideation: No Goal/Treatment Plan - Goal/Treatment Plan Need for Continued Stay: Discharge may exacerbated symptoms, Severe functional impairment Progress Toward Problem(s) and Goals/Treatment Plan: Transfer to detox Close observation Labs are ordered Ativan taper Methadone taper prn meds Indiv tx and groups refer to AA/IOP or rehab Not a candidate for MAT Med consult in AM (Dr. Sparks)
[2017-05-26] MEDS: Calcium Carbonate 500 mg Chewable Antacid Tab PO SCH (17:53)
--- NOTE | 2017-05-26 21:15 | CP.PCM.DIS ---
Provider - Provider Date of Admission: 05/23/17 05:58 Attending physician: Taye Sparks Jr, MD Time Spent in preparation of Discharge (in minutes): 40 Hospital Course - Lab Results Lab Results: Micro Results 05/25/17 10:38 Blood Blood Culture - Preliminary NO GROWTH AFTER 24 HOURS 05/25/17 10:08 Blood Blood Culture - Preliminary NO GROWTH AFTER 24 HOURS 05/25/17 14:13 Urine,Clean Catch Urine Culture - Final <10,000 CFU/ML. MULTIPLE SPECIES. PROBABLE CONTAMINATION. Most Recent Lab Values WBC 7.9 K/uL (4.8-10.8) 05/25/17 10:51 RBC 4.31 Mil/uL (4.40-5.90) L 05/25/17 10:51 Hgb 13.5 g/dL (12.0-18.0) 05/25/17 10:51 Hct 38.9 % (35.0-51.0) 05/25/17 10:51 MCV 90.2 fL (80.0-94.0) 05/25/17 10:51 MCH 31.3 pg (27.0-31.0) H 05/25/17 10:51 MCHC 34.7 g/dL (33.0-37.0) 05/25/17 10:51 RDW 15.2 % (11.5-14.5) H 05/25/17 10:51 Plt Count 80 K/uL (130-400) L D 05/25/17 10:51 MPV 9.9 fL (7.2-11.7) 05/25/17 10:51 Neut % (Auto) 82.3 % (50.0-75.0) H 05/25/17 10:51 Lymph % (Auto) 10.7 % (20.0-40.0) L 05/25/17 10:51 [place] % (Auto) 6.4 % (0.0-10.0) 05/25/17 10:51 Eos % (Auto) 0.1 % (0.0-4.0) 05/25/17 10:51 Baso % (Auto) 0.5 % (0.0-2.0) 05/25/17 10:51 Neut # 6.5 K/uL (1.8-7.0) 05/25/17 10:51 Lymph # 0.8 K/uL (1.0-4.3) L 05/25/17 10:51 [place] # 0.5 K/uL (0.0-0.8) 05/25/17 10:51 Eos # 0.0 K/uL (0.0-0.7) 05/25/17 10:51 Baso # 0.0 K/uL (0.0-0.2) 05/25/17 10:51 Differential Comment 05/24/17 08:21 PT 18.8 SECONDS (9.7-12.2) H 05/23/17 11:53 INR 1.6 05/23/17 11:53 Sodium 129 mmol/L (132-148) L 05/26/17 08:19 Potassium 3.9 mmol/L (3.6-5.2) 05/26/17 08:19 Chloride 100 mmol/L (98-107) 05/26/17 08:19 Carbon Dioxide 22 mmol/L (22-30) 05/26/17 08:19 Anion Gap 11 (10-20) 05/26/17 08:19 BUN 19 mg/dL (9-20) 05/26/17 08:19 Creatinine 0.9 mg/dL (0.8-1.5) 05/26/17 08:19 Est GFR ( Amer) > 60 05/26/17 08:19 Est GFR (Non-Af Amer) > 60 05/26/17 08:19 Random Glucose 98 mg/dL (75-110) 05/26/17 08:19 Calcium 7.9 mg/dl (8.6-10.4) L 05/26/17 08:19 Phosphorus 3.7 mg/dL (2.5-4.5) 05/26/17 08:19 Magnesium 2.3 mg/dL (1.6-2.3) 05/26/17 08:19 Total Bilirubin 2.8 mg/dL (0.2-1.3) H 05/26/17 08:19 AST 147 U/L (17-59) H 05/26/17 08:19 ALT 119 U/L (21-72) H 05/26/17 08:19 Alkaline Phosphatase 180 U/L (38-126) H 05/26/17 08:19 Troponin I < 0.0120 ng/mL (0.00-0.120) 05/25/17 13:57 Total Protein 7.1 g/dL (6.3-8.3) 05/26/17 08:19 Albumin 3.1 g/dL (3.5-5.0) L 05/26/17 08:19 Globulin 4.0 gm/dL (2.2-3.9) H 05/26/17 08:19 Albumin/Globulin Ratio 0.8 (1.0-2.1) L 05/26/17 08:19 25-OH Vitamin D Total 29.8 NG/ML (30.0-100.0) L 05/25/17 10:51 Urine Color [place] (YELLOW) 05/25/17 19:59 Urine Clarity Clear (Clear) 05/25/17 19:59 Urine pH 5.0 (5.0-8.0) 05/25/17 19:59 Ur Specific [place] 1.023 (1.003-1.030) 05/25/17 19:59 Urine Protein Negative mg/dL (NEGATIVE) 05/25/17 19:59 Urine Glucose (UA) Normal mg/dL (Normal) 05/25/17 19:59 Urine Ketones Negative mg/dL (NEGATIVE) 05/25/17 19:59 Urine Blood 1+ (NEGATIVE) H 05/25/17 19:59 Urine Nitrate Negative (NEGATIVE) 05/25/17 19:59 Urine Bilirubin Negative (NEGATIVE) 05/25/17 19:59 Urine Urobilinogen 4.0 mg/dL (0.2-1.0) 05/25/17 19:59 Ur Leukocyte Esterase Neg [place]/uL (Negative) 05/25/17 19:59 Urine WBC (Auto) 2 /hpf (0-5) 05/25/17 19:59 Urine RBC (Auto) 11 /hpf (0-3) H 05/25/17 19:59 Ur Squamous Epith Cells < 1 /hpf (0-5) 05/25/17 19:59 Urine Bacteria Rare (<OCC) 05/25/17 19:59 Urine Opiates Screen Positive (NEGATIVE) H 05/23/17 02:04 Urine Methadone Screen Negative (NEGATIVE) 05/23/17 02:04 Ur Barbiturates Screen Negative (NEGATIVE) 05/23/17 02:04 Ur Phencyclidine Scrn Negative (NEGATIVE) 05/23/17 02:04 Ur Amphetamines Screen Negative (NEGATIVE) 05/23/17 02:04 U Benzodiazepines Scrn Negative (NEGATIVE) 05/23/17 02:04 U Oth Cocaine Metabols Positive (NEGATIVE) H 05/23/17 02:04 U Cannabinoids Screen Negative (NEGATIVE) 05/23/17 02:04 Alcohol, Quantitative < 10 mg/dl (0-10) 05/23/17 02:04 Hepatitis A IgM Ab Reactive (NEGATIVE) 05/25/17 10:53 Hepatitis A Ab Total Antibody pos (NEGATIVE) 05/25/17 10:53 Hep Bs Antigen Negative (NEGATIVE) 05/25/17 10:53 Hep B Core IgM Ab Negative (NEGATIVE) 05/25/17 10:53 Hepatitis C Antibody Reactive (NEGATIVE) 05/25/17 10:53 - Hospital Course Hospital Course: CC: Alcohol withdrawal and heroin detox Patient is a 56-year-old male with a PMHx of hepatitis, cirrhosis, and liver cancer who presents to the ED requesting detox for alcohol and heroin use. Patient states that he gets really bad runs, and clarifies that when he withdraws from alcohol, the gets diarrhea, chest pain, a runny nose, abdominal pain, nausea and vomiting. The chest pain comes and goes and is worse with inspiration. He denies any seizure history. Patient drinks alcohol and uses heroin daily, and frequently uses cocaine. He denies suicidal ideations and hallucinations. Patient states that he has two daughters and that he has been hiding these habits from them. He says that he needs to stop for them. Patient says that hes tried Suboxone from the streets and has never used methadone. Patient was diagnosed with liver cancer 20 years ago and was treated with Nexavar chemotherapy pills. He states that he hasnt seen a doctor for a long time and hasnt received treatment for his liver cancer for over 8 years. Patient denies any shortness of breath, headaches, fevers, chills, abdominal pain, nausea, vomiting, changes in vision, or any other complaints. Past medical history: Hepatitis, Cirrhosis, Liver cancers Medications: MAR reviewed. Allergies: Olvin Past surgical history: Bilateral knee surgeries, appendectomy Family History: Denies Social history: Tobacco 1/2 pack for 42 years. Drinks 3, 32oz. beer Hospital Course: During admission patient being treated for alcohol and heroin detox. Psychiatry was consulted Dr. Beckham. Bakari was started on methadone. Due to patient's history of liver cancer an abdominal US showed hepatic lesions compatible with hx of malignancy/metastases. Patient also had a fever during hospitalization and blood and urine cultures were drawn. Urine culture negative. Blood culture no growth as preliminary. Patient was seen and examined at bedside. Patient states he is feeling a bit better but he is still not feeling his best as he is still going through withdrawal symptoms. Patient did eat most of his breakfast this morning. Spoke with Dr. Beckham and he stated patient is stable to be transferred to the detox unit today 05/26/17. Patient will be transferred to the Detox Unit at [facility]. Patient will continued to be monitored and followed by the Medicine Team. This is a summary of patient's hospital course, please see chart for full details. Discharge Exam - Head Exam Head Exam: ATRAUMATIC, NORMOCEPHALIC - Eye Exam Eye Exam: EOMI, Normal appearance - ENT Exam ENT Exam: Mucous Membranes Moist - Respiratory Exam Respiratory Exam: Clear to PA & Lateral, NORMAL BREATHING PATTERN - Cardiovascular Exam Cardiovascular Exam: REGULAR RHYTHM, +S1, +S2 - GI/Abdominal Exam GI & Abdominal Exam: Normal Bowel Sounds, Soft. absent: Tenderness - Extremities Exam Extremities exam: normal inspection - Neurological Exam Neurological exam: Alert, Oriented x3 - Psychiatric Exam Psychiatric exam: Normal Affect, Normal Mood - Skin Skin Exam: Normal Color, Warm Discharge Plan - Follow Up Plan Condition: STABLE Disposition: HOME/ ROUTINE Instructions: How to Stop Smoking (DC), Hyponatremia (DC), Cigarette Smoking and Your Health (GEN), Narcotic Abuse (DC), Opioid Dependence (DC), Opioid Withdrawal (DC)
--- NOTE | 2017-05-26 22:03 | PCM.BM ---
<VinceHeather - Last Filed: 05/26/17 22:01> Treatment Plan Problems - Problems identified on initial assessmt Potential for alcohol withdrawal Date Initiated: 05/26/17 Time Initiated: 22:02 Assessment reference: NA Status: Active Priority: 1 Potential for opiate withdrawal Date Initiated: 05/26/17 Time Initiated: 22:02 Assessment reference: NA Status: Active Priority: 2 Treatment assets and liabiliti Patient Assests: ADL independent, negotiates basic needs Patient Liabilities: substance abuse (ETOH, opiates), medical problems (Liver cancer, ) - Milieu Protocol Maintain good personal hygiene: daily Encourage regular showers, daily Remind patient to perform daily oral care, daily Assist patient to perform ADL's Conduct patient checks and document Observation sheet: Q15 minutes Maintain personal safety: every shift Educate patient to report safety concerns to staff, every shift Monitor environment for contraband/sharps Medication safety: Monitor for expected outcome, potential side effects: every shift, Assess barriers to learning: every shift, Assess readiness for medication education: every shift Milieu Narrative: Close observation Consider 1:1 if mental status worsens IV fluids - stat (nurse made aware) Banana bag use motrin, not tylenol due to liver Treat underlying conditions (hyponatremia) Labs are ordered Ativan taper adjusted Methadone taper stated 35 min Discharge/Continuing Care - Treatment Team Participation Patient/Family/SO Statement: Close observation Consider 1:1 if mental status worsens IV fluids - stat (nurse made aware) Banana bag use motrin, not tylenol due to liver Treat underlying conditions (hyponatremia) Labs are ordered Ativan taper adjusted Methadone taper stated 35 min <Pam Beckham - Last Filed: 05/27/17 10:01> - Diagnosis (1) Alcohol use disorder, severe, dependence Status: Acute Interventions: 05/27/17 10:01 * Assess 7x/week regarding severity of withdrawal * Educate regarding risks, benefits, side effects and alternatives of medications * Use Motivational Interviewing for abstinence * Use CBT for relapse prevention * Medication management for withdrawal symptoms * Encourage medication assisted treatment * (2) Opioid dependence Status: Acute Interventions: 05/27/17 10:01 * Assess 7x/week regarding severity of withdrawal * Educate regarding risks, benefits, side effects and alternatives of medications * Use Motivational Interviewing for abstinence * Use CBT for relapse prevention * Medication management for withdrawal symptoms * Encourage medication assisted treatment *
--- NOTE | 2017-05-27 07:26 | CP.PCM.CON ---
History of Present Illness - History of Present Illness History of Present Illness: CC: Alcohol withdrawal and heroin detox Patient is a 56-year-old male with a PMHx of hepatitis, cirrhosis, and liver cancer who presents to the ED requesting detox for alcohol and heroin use. Patient states that he gets really bad runs, and clarifies that when he withdraws from alcohol, the gets diarrhea, chest pain, a runny nose, abdominal pain, nausea and vomiting. The chest pain comes and goes and is worse with inspiration. He denies any seizure history. Patient drinks alcohol and uses heroin daily, and frequently uses cocaine. He denies suicidal ideations and hallucinations. Patient states that he has two daughters and that he has been hiding these habits from them. He says that he needs to stop for them. Patient says that hes tried Suboxone from the streets and has never used methadone. Patient states he diagnosed with liver cancer 20 years ago and was treated with Nexavar chemotherapy pills. He states that he hasnt seen a doctor for a long time and hasnt received treatment for his liver cancer for over 8 years. Patient was originally going to go to Detox, but was admitted to the floors for hyponatremia. Patient was then transferred to detox on 05/26/17. Patient is still complaining of withdrawal symptoms, diarrhea, nausea, fevers, chills, body aches. PMHx: Hepatitis, Cirrhosis, Liver cancers SurgHx: Bilateral knee surgeries, appendectomy Family History: Denies Social history: Tobacco 1/2 pack for 42 years. Drinks 3, 32oz. beer Allergies: Denies Medications: See EMR Review of Systems - Constitutional Constitutional: Chills, Fever, Lethargy, Night Sweats, Weakness - EENT Ears: Dizziness - Cardiovascular Cardiovascular: Chest Pain. absent: Dyspnea - Respiratory Respiratory: Cough, Change in Mucous Color (yellow), Pain with Coughing. absent : Dyspnea, Hemoptysis - Gastrointestinal Gastrointestinal: Abdominal Pain, Diarrhea, Nausea, Vomiting. absent: Constipation - Genitourinary Genitourinary: absent: Dysuria - Musculoskeletal Musculoskeletal: Arthralgias, Myalgias - Psychiatric Psychiatric: Auditory Hallucinations (male voice; cannot determine what voices are saying). absent: Visual Hallucinations Past Patient History - Infectious Disease Hx of Infectious Diseases: None - Past Medical History & Family History Past Medical History?: Yes - Past Social History Smoking Status: Heavy Smoker > 10 Cigarettes Daily - CARDIAC Hx Cardiac Disorders: No - PULMONARY Hx Respiratory Disorders: No - NEUROLOGICAL Hx Neurological Disorder: No - HEENT Hx HEENT Problems: No - RENAL Hx Chronic Kidney Disease: No - ENDOCRINE/METABOLIC Hx Endocrine Disorders: No - HEMATOLOGICAL/ONCOLOGICAL Hx AIDS: No Hx Anemia: No Hx Blood Transfusions: No Hx Blood Transfusion Reaction: No Hx Bruising: No Hx Cancer: Yes (liver) Hx Chemotherapy: No Hx Cirrhosis: Yes Hx Gum Bleeding: No Hx Hemophilia: No Hx Hepatitis A: No Hx Hepatitis B: No Hx Hepatitis C: Yes Hx Human Immunodeficiency Virus (HIV): No Hx Leukemia: No Hx Metastesis: No Hx Shingles: No Hx Sickle Cell Disease: No Hx Unexplained Bleeding: No Hx von Willebrand's Disease: No - INTEGUMENTARY Hx Dermatological Problems: No - MUSCULOSKELETAL/RHEUMATOLOGICAL Hx Musculoskeletal Disorders: No Hx Falls: No - GASTROINTESTINAL Hx Bowel Surgery: No Hx Clostridium Difficile: No Hx Colitis: No Hx Colostomy: No Hx Constipation: No Hx Crohn's Disease: No Hx Diarrhea: No Hx Diverticulitis: No Hx Esophageal Varices: No Hx Fatty Liver Disease: No Hx Gall Bladder Disease: No Hx Gastritis: No Hx Gastroesophageal Reflux: No Hx Hemorrhoids: No Hx Ileostomy: No Hx Irritable Bowel: No Hx Liver Failure: No Hx Nausea: No Hx Pancreatitis: No HX Swallowing Problems: No Hx Ulcer: No Hx Vomiting: No Other/Comment: H/O hepatitis,cirrhosis and Liver Cancer - GENITOURINARY/GYNECOLOGICAL Hx Genitourinary Disorders: No - PSYCHIATRIC Hx Anxiety: No Hx Bipolar Disorder: No Hx Depression: No Hx Emotional Abuse: No Hx Hallucinations: No Hx Panic Symptoms: No Hx Paranoia: No Hx Post Traumatic Stress Disorder: No Hx Psychosis: No Hx Physical Abuse: No Hx Schizophrenia: No Hx Sexual Abuse: No Hx Substance Use: Yes (heroin and crack) - SURGICAL HISTORY Hx Surgeries: Yes Hx Orthopedic Surgery: Yes (L knee and L ankle) - ANESTHESIA Hx Anesthesia: Yes Hx Anesthesia Reactions: No Hx Malignant Hyperthermia: No Has any member of the family had a problem w/ anesthesia?: No Meds Allergies/Adverse Reactions: Allergies Allergy/AdvReac Type Severity Reaction Status Date / Time No Known Allergies Allergy Verified 05/23/17 01:33 - Medications Medications: Current Medications Calcium Carbonate (Tums) 500 mg PO BID [facility] Last Admin: 05/26/17 17:53 Dose: 500 mg Clonidine HCl (Catapres) 0.1 mg PO ONCE PRN PRN Reason: Nausea/Vomiting Last Admin: 05/25/17 07:13 Dose: 0.1 mg Ergocalciferol (Drisdol 50,000 Intl Units Cap) 1 cap PO Q7D [facility] Last Admin: 05/26/17 10:45 Dose: 1 cap Famotidine (Pepcid) 20 mg PO BID [facility] Last Admin: 05/26/17 17:15 Dose: 20 mg Ibuprofen (Motrin Tab) 600 mg PO Q4 PRN PRN Reason: Fever >100.4 F Last Admin: 05/26/17 20:36 Dose: 600 mg Lorazepam (Ativan) 1 mg PO Q6H [facility] PRN Reason: Taper Stop: 05/29/17 17:59 Last Admin: 05/27/17 06:29 Dose: Not Given Methadone HCl (Methadone) 15 mg PO Q24H [facility] PRN Reason: Taper Stop: 05/30/17 08:59 Last Admin: 05/26/17 09:02 Dose: 15 mg Physical Exam - Constitutional Appears: In Acute Distress (withdrawal symptoms) - Head Exam Head Exam: ATRAUMATIC, NORMOCEPHALIC - Eye Exam Eye Exam: EOMI - ENT Exam ENT Exam: Mucous Membranes Moist - Respiratory Exam Respiratory Exam: Clear to Auscultation Bilateral, NORMAL BREATHING PATTERN. absent: Rales, Rhonchi, Wheezes, Respiratory Distress - Cardiovascular Exam Cardiovascular Exam: REGULAR RHYTHM, +S1, +S2 - GI/Abdominal Exam GI & Abdominal Exam: Normal Bowel Sounds, Tenderness (throughtout abdomen). absent: Distended, Firm, Soft - Extremities Exam Extremities exam: Positive for: pedal pulses present. Negative for: pedal edema , tenderness - Neurological Exam Neurological exam: Alert, Oriented x3 - Psychiatric Exam Psychiatric exam: Normal Affect - Skin Skin Exam: Dry, Intact, Normal Color, Warm Results - Vital Signs Recent Vital Signs: Last Vital Signs Temp 97.7 F 05/27/17 06:41 Pulse 52 L 05/27/17 06:41 Resp 18 05/27/17 06:41 BP 90/60 L 05/27/17 06:41 Pulse Ox 96 05/27/17 06:41 - Labs Result Diagrams: 05/27/17 07:45 05/27/17 07:45 Labs: Laboratory Results - last 24 hr 05/26/17 08:19 Sodium 129 L Potassium 3.9 Chloride 100 Carbon Dioxide 22 Anion Gap 11 BUN 19 Creatinine 0.9 Est GFR ( Amer) > 60 Est GFR (Non-Af Amer) > 60 Random Glucose 98 Calcium 7.9 L Phosphorus 3.7 Magnesium 2.3 Total Bilirubin 2.8 H AST 147 H ALT 119 H Alkaline Phosphatase 180 H Total Protein 7.1 Albumin 3.1 L Globulin 4.0 H Albumin/Globulin Ratio 0.8 L Assessment & Plan - Assessment and Plan (Free Text) Plan: 56 year old male with a past medical history of hepatitis C, liver cirrhosis, liver carcinoma who was admitted for detox from alcohol and heroin abuse. Patient was not taken to detox due to hyponatremia. Patient transferred to detox on 05/26/17. Medicine team consulted. Plan: Alcohol withdrawal/ Heroin Detox -Patient transferred to detox on 05/26/17 -Management as per detox team -Continue CIWA Precautions -Continue Fall precautions -Seizure precautions -Ativan 1mg PO Q6 [facility] -Methadone protocol Fever -Likely secondary to withdrawal and/or underlying infection -Blood cx: negative -Urine cx: negative -Motrin 400mg PO Q6 prn given for fever/pain -Ice packs or hypothermic blanket may be used Liver Cancer -Patient was diagnosed 20 years ago. -Patient no longer receiving treatment due to financial constraints. -Consider Liver Specialist consult if necessary in the future. -Abdominal US (05/23): hepatic lesions compatible with hx of malignancy/ metastases Liver Cirrhosis 2/2 to Alcohol Abuse -Patient currently not being followed by a specialist. -Stable -Consider GI consult. Hepatitis A -Hep A IgM Ab reactive, Hepatitis A Ab positive -supportive therapy -continue to monitor -GI consulted, Dr. Hernandez, help appreciated Elevated transaminases -likely secondary to liver cirrhosis, liver mets, alcohol abuse, hepatitis C, hepatitis A -avoid tylenol, hepatotoxic medications -continue to monitor Thrombocytopenia -likely secondary to hx liver cirrhosis and liver mets -continue to monitor Prophylaxis -Heparin 500units Q12 -Pepcid 20mg BID -Regular diet
[2017-05-27 08:00] LABS: BASO # 0.1 K/uL (0.0-0.2); BASO % 2.4 % (0.0-2.0); EOS # 0.1 K/uL (0.0-0.7); EOS % 1.9 % (0.0-4.0); HEMOGLOBIN 14.6 g/dL (12.0-18.0); LYMPH # 0.8 K/uL (1.0-4.3); LYMPH % 23.1 % (20.0-40.0); MEAN CELL VOLUME 91.3 fL (80.0-94.0); MEAN CORPUSCULAR HEMOGLOBIN 31.2 pg (27.0-31.0); MEAN CORPUSCULAR HGB CONC 34.2 g/dL (33.0-37.0); MEAN PLATELET VOLUME 10.5 fL (7.2-11.7); MONO # 0.4 K/uL (0.0-0.8); MONO % 10.9 % (0.0-10.0); NEUT # 2.2 K/uL (1.8-7.0); NEUT % 61.7 % (50.0-75.0); NRBC % 0.1 % (0.0-2.0); RBC 4.66 Mil/uL (4.40-5.90); RED CELL DISTRIBUTION WIDTH 15.8 % (11.5-14.5)
[2017-05-27 08:01] LABS: WHITE BLOOD COUNT 3.6 K/uL (4.8-10.8)
[2017-05-27 08:12] LABS: ALBUMIN 2.9 g/dL (3.5-5.0); ALT/SGPT 119 U/L (21-72); AST/SGOT 158 U/L (17-59); BLOOD UREA NITROGEN 17 mg/dL (9-20); GFR AFRICAN-AMERICAN > 60; GFR NON-AFRICAN AMERICAN > 60; MAGNESIUM 2.1 mg/dL (1.6-2.3)
[2017-05-27 08:33] LABS: ALB/GLOB RATIO 0.7 (1.0-2.1)
[2017-05-27] MEDS: Calcium Carbonate 500 mg Chewable Antacid Tab PO SCH ×2 (09:45→18:02)
--- NOTE | 2017-05-27 10:22 | RAD ---
Chest x-ray two views History: Fever. Comparison 11/28/2015 Findings: Diffuse increased interstitial lung markings. Mild patchy increased markings at the right lung base. Heart size within normal limits. Degenerative changes in the spine and shoulders. Foreshortening of the bilateral clavicles. Impression: Diffuse increased interstitial lung markings. Mild patchy increased markings at the right lung base.
--- NOTE | 2017-05-27 13:14 | PCM.PYCHPN ---
Psychiatric Progress Note - Psychiatric Progress Note Patient seen today, length of contact: 16 min Patient Chief Complaint: "very tired" Problems Identified/Issues Discussed: The pt is seen, chart reviewed, case discussed with staff. Support given, CBT and RI used briefly No new symptoms reported, but fatigue, improving slowly and needs more time Labs are still off and [facility] inquired about his Hep A diagnosis He also had a CXR and cultures came negative No SEs from medications, risks discussed. 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 Medicine is on board - help appreciated Medication Change: Yes (detox changes daily) Medical Record Reviewed: Yes Mental Status Examination - Cognitive Function Orientation: Person, Place, Situation, Time Memory: Intact Attention: Poor Concentration: Poor Association: WNL - Mood Mood: Anxious - Affect Affect: Constricted - Speech Speech: Appropriate - Formal Thought Process Formal Thought Process: No Impairment - Suicidal Ideation Suicidal Ideation: No - Homicidal Ideation Homicidal Ideation: No Goal/Treatment Plan - Goal/Treatment Plan Need for Continued Stay: Discharge may exacerbated symptoms, Severe functional impairment Progress Toward Problem(s) and Goals/Treatment Plan: Continue detox Close observation Labs are ordered Ativan taper Methadone taper prn meds Indiv tx and groups Refer to AA/IOP or rehab Not a candidate for MAT Med consult appreciated
[2017-05-27 14:30] LABS: BASO % 0.6 % (0.0-2.0); EOS % 0.7 % (0.0-4.0); HEMOGLOBIN 13.6 g/dL (12.0-18.0); LYMPH # 0.7 K/uL (1.0-4.3); LYMPH % 17.7 % (20.0-40.0); MEAN CELL VOLUME 91.5 fL (80.0-94.0); MEAN CORPUSCULAR HGB CONC 33.9 g/dL (33.0-37.0); MEAN PLATELET VOLUME 10.8 fL (7.2-11.7); MONO # 0.3 K/uL (0.0-0.8); MONO % 8.5 % (0.0-10.0); NEUT % 72.5 % (50.0-75.0); RBC 4.4 Mil/uL (4.40-5.90); RED CELL DISTRIBUTION WIDTH 15.9 % (11.5-14.5); WHITE BLOOD COUNT 4.1 K/uL (4.8-10.8)
--- NOTE | 2017-05-27 23:38 | CARD ---
APPROVED REPORT EKG Measurement Heart [id number] <Conclusion> Normal sinus rhythm Possible Left atrial enlargement Borderline ECG
--- NOTE | 2017-05-28 07:23 | CP.PCM.PN ---
<Susie Stoner - Last Filed: 05/28/17 12:08> Subjective - Date & Time of Evaluation Date of Evaluation: 05/28/17 Time of Evaluation: 07:16 - Subjective Subjective: Medicine progress note for Dr. Sparks Patient was seen and examined at bedside in no acute distress. Patient was sitting up and eating breakfast. Patient reports hes not feeling better, however he appears slightly improved. Patient reports still having chills, diarrhea, chest pain, and the shakes, however, denies, nausea, vomiting, fevers , headache, leg pain, and hallucinations. Objective - Vital Signs/Intake and Output Vital Signs (last 24 hours): Temp Pulse Resp BP Pulse Ox 98.3 F 65 18 137/83 96 05/28/17 05:50 05/28/17 05:50 05/28/17 05:50 05/28/17 05:50 05/28/17 05:50 - Medications Medications: Current Medications Calcium Carbonate (Tums) 500 mg PO BID [facility] Last Admin: 05/27/17 18:02 Dose: 500 mg Clonidine HCl (Catapres) 0.1 mg PO ONCE PRN PRN Reason: Nausea/Vomiting Last Admin: 05/25/17 07:13 Dose: 0.1 mg Ergocalciferol (Drisdol 50,000 Intl Units Cap) 1 cap PO Q7D [facility] Last Admin: 05/26/17 10:45 Dose: 1 cap Famotidine (Pepcid) 20 mg PO BID [facility] Last Admin: 05/27/17 18:02 Dose: 20 mg Ibuprofen (Motrin Tab) 400 mg PO Q6H PRN PRN Reason: Pain, moderate (4-7) Last Admin: 05/27/17 14:13 Dose: 400 mg Lorazepam (Ativan) 1 mg PO Q8H [facility] PRN Reason: Taper Stop: 05/29/17 17:59 Last Admin: 05/28/17 02:24 Dose: 1 mg Lorazepam (Ativan) 1 mg PO Q6H PRN PRN Reason: Breakthrough alcohol wdw Methadone HCl (Methadone) 10 mg PO Q24H [facility] PRN Reason: Taper Stop: 05/30/17 08:59 Last Admin: 05/27/17 09:40 Dose: 10 mg Nicotine (Nicoderm Cq) 1 patch TD DAILY [facility] Last Admin: 05/27/17 12:14 Dose: 1 patch - Labs Labs: 05/27/17 14:22 05/27/17 07:45 PT 18.8 SECONDS (9.7-12.2) H 05/23/17 11:53 INR 1.6 05/23/17 11:53 - Additional Findings Additional findings: - Constitutional Appears: In No Acute Distress - Head Exam Head Exam: ATRAUMATIC, NORMOCEPHALIC - Eye Exam Eye Exam: EOMI - ENT Exam ENT Exam: Mucous Membranes Moist - Respiratory Exam Respiratory Exam: Clear to Auscultation Bilateral, NORMAL BREATHING PATTERN. absent: Rales, Rhonchi, Wheezes, Respiratory Distress - Cardiovascular Exam Cardiovascular Exam: REGULAR RHYTHM, +S1, +S2 - GI/Abdominal Exam GI & Abdominal Exam: Normal Bowel Sounds. absent: Distended, Firm, Soft, Tenderness - Extremities Exam Extremities exam: Positive for: pedal pulses present. Negative for: pedal edema , tenderness - Neurological Exam Neurological exam: Alert, Oriented x3 - Psychiatric Exam Psychiatric exam: Normal Affect - Skin Skin Exam: Dry, Intact, Normal Color, Warm Assessment and Plan - Assessment and Plan (Free Text) Plan: 56 year old male with a past medical history of hepatitis C, liver cirrhosis, liver carcinoma who was admitted for detox from alcohol and heroin abuse. Patient was not taken to detox due to hyponatremia. Patient transferred to detox on 05/26/17. Medicine team consulted. Plan: Alcohol withdrawal/ Heroin Detox -Patient transferred to detox on 05/26/17 -Management as per detox team -Continue CIWA Precautions -Continue Fall precautions -Seizure precautions -Ativan 1mg PO Q6 [facility] -Methadone protocol Fever -Likely secondary to withdrawal and/or hepatitis A -Blood cx: negative -Urine cx: negative -Motrin 400mg PO Q6 prn given for fever/pain -Ice packs or hypothermic blanket may be used -CXR: diffuse increased interstitial lung markings; mild patchy increased markings at the right lung base. Liver Cancer -Patient was diagnosed 20 years ago. -Patient no longer receiving treatment due to financial constraints. -Consider Liver Specialist consult if necessary in the future. -Abdominal US (05/23): hepatic lesions compatible with hx of malignancy/ metastases -Hem/Onc consulted, Dr. Spencer; recs appreciated Liver Cirrhosis 2/2 to Alcohol Abuse -Patient currently not being followed by a specialist. -Stable -GI consulted, Dr. Hernandez, help appreciated Acute Hepatitis A -Hep A IgM Ab reactive, Hepatitis A Ab positive -supportive therapy -continue to monitor -GI consulted, Dr. Hernandez, help appreciated Elevated transaminases -likely secondary to liver cirrhosis, liver mets, alcohol abuse, hepatitis C, hepatitis A -avoid Tylenol, hepatotoxic medications -continue to monitor Thrombocytopenia -likely secondary to hx liver cirrhosis and liver mets -improved from 78 to 95 on 05/28/17 -continue to monitor Prophylaxis -Pepcid 20mg BID -Regular diet Discussed with Dr. Sparks. <Taye Sparks Jr. - Last Filed: 05/30/17 19:25> Objective - Vital Signs/Intake and Output Vital Signs (last 24 hours): Temp Pulse Resp BP Pulse Ox 97.2 F L 68 18 123/77 98 05/30/17 09:59 05/30/17 09:59 05/30/17 09:59 05/30/17 09:59 05/30/17 09:59 - Labs Labs: 05/30/17 08:39 05/30/17 08:39 PT 18.8 SECONDS (9.7-12.2) H 05/23/17 11:53 INR 1.6 05/23/17 11:53 Attending/Attestation - Attestation I have personally seen and examined this patient.: Yes I have fully participated in the care of the patient.: Yes I have reviewed all pertinent clinical information, including history, physical exam and plan: Yes Notes (Text): 05/30/17 19:24 Agree with resident note and plan of care
[2017-05-28 08:44] LABS: BASO # 0.1 K/uL (0.0-0.2); BASO % 1.1 % (0.0-2.0); EOS % 0.7 % (0.0-4.0); HEMOGLOBIN 13.2 g/dL (12.0-18.0); LYMPH # 1.3 K/uL (1.0-4.3); LYMPH % 27.5 % (20.0-40.0); MEAN CELL VOLUME 90.4 fL (80.0-94.0); MEAN CORPUSCULAR HEMOGLOBIN 30.7 pg (27.0-31.0); MEAN CORPUSCULAR HGB CONC 33.9 g/dL (33.0-37.0); MEAN PLATELET VOLUME 11.5 fL (7.2-11.7); MONO # 0.6 K/uL (0.0-0.8); MONO % 13.3 % (0.0-10.0); NEUT # 2.7 K/uL (1.8-7.0); NEUT % 57.4 % (50.0-75.0); RBC 4.32 Mil/uL (4.40-5.90); RED CELL DISTRIBUTION WIDTH 15.5 % (11.5-14.5); WHITE BLOOD COUNT 4.6 K/uL (4.8-10.8)
[2017-05-28 09:12] LABS: ALB/GLOB RATIO 0.7 (1.0-2.1); ALBUMIN 2.8 g/dL (3.5-5.0); ALT/SGPT 120 U/L (21-72); AST/SGOT 156 U/L (17-59); BLOOD UREA NITROGEN 17 mg/dL (9-20); CALCIUM 7.8 mg/dl (8.6-10.4); GFR AFRICAN-AMERICAN > 60; GFR NON-AFRICAN AMERICAN > 60
[2017-05-28] MEDS: Calcium Carbonate 500 mg Chewable Antacid Tab PO SCH ×3 (10:04→18:13)
--- NOTE | 2017-05-28 12:13 | PCM.PYCHPN ---
Psychiatric Progress Note - Psychiatric Progress Note Patient seen today, length of contact: 16 min Patient Chief Complaint: "Not feeling well Problems Identified/Issues Discussed: The pt is seen, chart reviewed, case discussed with staff. Support given, psychoed used Hep A is likely acute as he has mild jaundice, low grade fever and mild abdominal pain. He claims he did see somewhat dark urine but his feces was not white/silver. He has more joint pain due to withdrawals. He refused tums but Ca is low He may not leave tomorrow as he is still very sickly, mostly in bed Not kayla/homi and no AVH/del elicited GI consult asked by medicine, help appreciated. Medication Change: Yes (detox changes daily) Medical Record Reviewed: Yes Mental Status Examination - Cognitive Function Orientation: Person, Place, Situation, Time Memory: Intact Attention: Poor Concentration: Poor Association: WNL - Mood Mood: Anxious - Affect Affect: Constricted - Speech Speech: Appropriate - Formal Thought Process Formal Thought Process: No Impairment - Suicidal Ideation Suicidal Ideation: No - Homicidal Ideation Homicidal Ideation: No Goal/Treatment Plan - Goal/Treatment Plan Need for Continued Stay: Discharge may exacerbated symptoms, Severe functional impairment Progress Toward Problem(s) and Goals/Treatment Plan: Continue detox Close observation Labs are ordered Ativan taper Methadone taper ending but esme extend one more day due to sxs prn meds Indiv tx and groups Refer to AA/IOP or rehab Not a candidate for MAT Med consult appreciated Estimated Date of D/C: 05/30/17
--- NOTE | 2017-05-28 16:42 | CP.PCM.CON ---
<Gianna Duran - Last Filed: 05/28/17 16:30> History of Present Illness - History of Present Illness History of Present Illness: Hematology/Oncology Consult for Dr. Spencer Reason for consult: history of liver cancer with liver lesion on imaging 56 year old male with PMHx of liver cancer 20-25 years ago, Hep C, cirrhosis, opiate and alcohol abuse admitted on 05/23/17 for hyponatremia, elevated LFTS and alcohol abuse. Patient is currently in Detox unit. Patient admits he was diagnosed with liver cancer 20-25 years ago in [facility] and was was being treated at [facility] in [place]. He underwent treatment with liver directed therapy and Nexavar which he used to take twice a day. Patient then moved to [place] and never followed up due to costs and insurance issues. Admits to history of Hepatitis C with no follow up. Patient willing to be treated and establish care as outpatient once discharged. Today patient admits to diarrhea, nausea, vomiting, fevers, chills, body aches. Past medical history: liver cancer 20-25 years ago, Hep C, cirrhosis, opiate and alcohol abuse Past surgical history: Bilateral knee surgeries, appendectomy Family history: Denies hematologic and oncologic problems Social history: tobacco 1/2 pack for over 40 years. Drinks four 32oz. beers daily. Uses Morphine, heroin and snorts crack. Has two daughters and grandchildren. Review of systems: All remaining review of systems including HEENT, cardiovascular, respiratory, gastrointestinal, genitourinary, musculoskeletal, dermatologic, neurologic, and psychiatric are negative unless mentioned in the HPI. Review of Systems - Constitutional Constitutional: Chills, Fatigue, Fever - EENT Eyes: absent: Change in Vision - Cardiovascular Cardiovascular: absent: Chest Pain - Respiratory Respiratory: absent: Cough, Dyspnea - Gastrointestinal Gastrointestinal: Abdominal Pain, Diarrhea, Nausea, Vomiting - Genitourinary Genitourinary: absent: Difficulty Urinating, Dysuria - Musculoskeletal Musculoskeletal: absent: Back Pain - Integumentary Integumentary: absent: Wounds - Neurological Neurological: absent: Dizziness, Numbness, Tingling - Psychiatric Psychiatric: absent: Homicidal Ideation - Endocrine Endocrine: absent: Palpitations - Hematologic/Lymphatic Hematologic: absent: Easy Bleeding Past Patient History - Infectious Disease Hx of Infectious Diseases: None - Past Medical History & Family History Past Medical History?: Yes - Past Social History Smoking Status: Heavy Smoker > 10 Cigarettes Daily - CARDIAC Hx Cardiac Disorders: No - PULMONARY Hx Respiratory Disorders: No - NEUROLOGICAL Hx Neurological Disorder: No - HEENT Hx HEENT Problems: No - RENAL Hx Chronic Kidney Disease: No - ENDOCRINE/METABOLIC Hx Endocrine Disorders: No - HEMATOLOGICAL/ONCOLOGICAL Hx AIDS: No Hx Anemia: No Hx Blood Transfusions: No Hx Blood Transfusion Reaction: No Hx Bruising: No Hx Cancer: Yes (liver) Hx Chemotherapy: No Hx Cirrhosis: Yes Hx Gum Bleeding: No Hx Hemophilia: No Hx Hepatitis A: No Hx Hepatitis B: No Hx Hepatitis C: Yes Hx Human Immunodeficiency Virus (HIV): No Hx Leukemia: No Hx Metastesis: No Hx Shingles: No Hx Sickle Cell Disease: No Hx Unexplained Bleeding: No Hx von Willebrand's Disease: No - INTEGUMENTARY Hx Dermatological Problems: No - MUSCULOSKELETAL/RHEUMATOLOGICAL Hx Musculoskeletal Disorders: No Hx Falls: No - GASTROINTESTINAL Hx Bowel Surgery: No Hx Clostridium Difficile: No Hx Colitis: No Hx Colostomy: No Hx Constipation: No Hx Crohn's Disease: No Hx Diarrhea: No Hx Diverticulitis: No Hx Esophageal Varices: No Hx Fatty Liver Disease: No Hx Gall Bladder Disease: No Hx Gastritis: No Hx Gastroesophageal Reflux: No Hx Hemorrhoids: No Hx Ileostomy: No Hx Irritable Bowel: No Hx Liver Failure: No Hx Nausea: No Hx Pancreatitis: No HX Swallowing Problems: No Hx Ulcer: No Hx Vomiting: No Other/Comment: H/O hepatitis,cirrhosis and Liver Cancer - GENITOURINARY/GYNECOLOGICAL Hx Genitourinary Disorders: No - PSYCHIATRIC Hx Substance Use: Yes - SURGICAL HISTORY Hx Surgeries: Yes Hx Orthopedic Surgery: Yes (L knee and L ankle) - ANESTHESIA Hx Anesthesia: Yes Hx Anesthesia Reactions: No Hx Malignant Hyperthermia: No Has any member of the family had a problem w/ anesthesia?: No Meds Allergies/Adverse Reactions: Allergies Allergy/AdvReac Type Severity Reaction Status Date / Time No Known Allergies Allergy Verified 05/23/17 01:33 - Medications Medications: Current Medications Calcium Carbonate (Tums) 500 mg PO BID [facility] Last Admin: 05/28/17 14:04 Dose: 500 mg Clonidine HCl (Catapres) 0.1 mg PO ONCE PRN PRN Reason: Nausea/Vomiting Last Admin: 05/25/17 07:13 Dose: 0.1 mg Ergocalciferol (Drisdol 50,000 Intl Units Cap) 1 cap PO Q7D [facility] Last Admin: 05/26/17 10:45 Dose: 1 cap Famotidine (Pepcid) 20 mg PO BID [facility] Last Admin: 05/28/17 09:39 Dose: 20 mg Ibuprofen (Motrin Tab) 400 mg PO Q6H PRN PRN Reason: Pain, moderate (4-7) Last Admin: 05/27/17 14:13 Dose: 400 mg Lorazepam (Ativan) 1 mg PO Q8H [facility] PRN Reason: Taper Stop: 05/29/17 17:59 Last Admin: 05/28/17 09:40 Dose: Not Given Lorazepam (Ativan) 1 mg PO Q6H PRN PRN Reason: Breakthrough alcohol wdw Methadone HCl (Methadone) 5 mg PO Q24H [facility] PRN Reason: Taper Stop: 05/30/17 08:59 Last Admin: 05/28/17 09:39 Dose: 5 mg Nicotine (Nicoderm Cq) 1 patch TD DAILY [facility] Last Admin: 05/28/17 10:01 Dose: 1 patch Physical Exam - Constitutional Appears: No Acute Distress, Cachectic, Chronically Ill - Head Exam Head Exam: ATRAUMATIC, NORMAL INSPECTION - Eye Exam Eye Exam: EOMI, Normal appearance - ENT Exam ENT Exam: Mucous Membranes Moist - Respiratory Exam Respiratory Exam: Clear to Auscultation Bilateral - Cardiovascular Exam Cardiovascular Exam: REGULAR RHYTHM, +S1, +S2 - GI/Abdominal Exam GI & Abdominal Exam: Soft. absent: Tenderness - Extremities Exam Extremities exam: Positive for: full ROM. Negative for: pedal edema - Back Exam Back exam: FULL ROM - Neurological Exam Neurological exam: Alert, Oriented x3 - Psychiatric Exam Psychiatric exam: Normal Affect, Normal Mood - Skin Skin Exam: Dry, Warm Results - Vital Signs Recent Vital Signs: Last Vital Signs Temp 98.4 F 05/28/17 16:06 Pulse 70 05/28/17 16:06 Resp 20 05/28/17 16:06 BP 115/71 05/28/17 16:06 Pulse Ox 95 05/28/17 16:06 - Labs Result Diagrams: 05/28/17 08:35 05/28/17 08:35 Labs: Laboratory Results - last 24 hr 05/27/17 05/28/17 05/28/17 16:59 08:35 08:35 WBC 4.6 L RBC 4.32 L Hgb 13.2 Hct 39.1 MCV 90.4 MCH 30.7 MCHC 33.9 RDW 15.5 H Plt Count 95 L MPV 11.5 Neut % (Auto) 57.4 Lymph % (Auto) 27.5 Foster % (Auto) 13.3 H Eos % (Auto) 0.7 Baso % (Auto) 1.1 Neut # 2.7 Lymph # 1.3 Foster # 0.6 Eos # 0.0 Baso # 0.1 Sodium 127 L Potassium 4.2 Chloride 102 Carbon Dioxide 20 L Anion Gap 10 BUN 17 Creatinine 0.7 L Est GFR ( Amer) > 60 Est GFR (Non-Af Amer) > 60 Random Glucose 86 Calcium 7.8 L Total Bilirubin 2.4 H AST 156 H ALT 120 H Alkaline Phosphatase 254 H D Total Protein 6.7 Albumin 2.8 L Globulin 3.9 Albumin/Globulin Ratio 0.7 L HIV 1&2 Antibody Screen Negative Assessment & Plan (1) History of liver cancer Assessment and Plan: Likely hepatocellular carcinoma Treated with liver directed therapy and Nexavar in the past. However, has been off treatment for many years. Hep C, Hep A noted Will check Alpha feto protein Outpatient follow up and treatment when discharged Status: Acute (2) Thrombocytopenia Assessment and Plan: Topday up to 95 from 78. HIV negative. Hep A and Hep C positive. Patient also has history of alcohol abuse. GI eval Monitor Status: Acute - Assessment and Plan (Free Text) Plan: Patient seen and examined during rounds with Dr. Spencer. Recommendations above as per attending. Dalia Duran, PGY 3 <Shaun Spencer - Last Filed: 05/28/17 21:20> Meds - Medications Medications: Current Medications Calcium Carbonate (Tums) 500 mg PO BID [facility] Last Admin: 05/28/17 18:13 Dose: 500 mg Clonidine HCl (Catapres) 0.1 mg PO ONCE PRN PRN Reason: Nausea/Vomiting Last Admin: 05/25/17 07:13 Dose: 0.1 mg Ergocalciferol (Drisdol 50,000 Intl Units Cap) 1 cap PO Q7D [facility] Last Admin: 05/26/17 10:45 Dose: 1 cap Famotidine (Pepcid) 20 mg PO BID [facility] Last Admin: 05/28/17 18:12 Dose: 20 mg Ibuprofen (Motrin Tab) 400 mg PO Q6H PRN PRN Reason: Pain, moderate (4-7) Last Admin: 05/27/17 14:13 Dose: 400 mg Lorazepam (Ativan) 1 mg PO Q12H [facility] PRN Reason: Taper Stop: 05/29/17 17:59 Last Admin: 05/28/17 18:13 Dose: 1 mg Lorazepam (Ativan) 1 mg PO Q6H PRN PRN Reason: Breakthrough alcohol wdw Methadone HCl (Methadone) 5 mg PO Q24H [facility] PRN Reason: Taper Stop: 05/30/17 08:59 Last Admin: 05/28/17 09:39 Dose: 5 mg Nicotine (Nicoderm Cq) 1 patch TD DAILY [facility] Last Admin: 05/28/17 10:01 Dose: 1 patch Results - Vital Signs Recent Vital Signs: Last Vital Signs Temp 98.5 F 05/28/17 20:00 Pulse 67 05/28/17 20:00 Resp 20 05/28/17 20:00 BP 98/63 L 05/28/17 20:00 Pulse Ox 95 05/28/17 20:00 - Labs Result Diagrams: 05/28/17 08:35 05/28/17 08:35 Labs: Laboratory Results - last 24 hr 05/28/17 05/28/17 05/28/17 08:35 08:35 19:45 WBC 4.6 L RBC 4.32 L Hgb 13.2 Hct 39.1 MCV 90.4 MCH 30.7 MCHC 33.9 RDW 15.5 H Plt Count 95 L MPV 11.5 Neut % (Auto) 57.4 Lymph % (Auto) 27.5 Foster % (Auto) 13.3 H Eos % (Auto) 0.7 Baso % (Auto) 1.1 Neut # 2.7 Lymph # 1.3 Foster # 0.6 Eos # 0.0 Baso # 0.1 Sodium 127 L Potassium 4.2 Chloride 102 Carbon Dioxide 20 L Anion Gap 10 BUN 17 Creatinine 0.7 L Est GFR ( Amer) > 60 Est GFR (Non-Af Amer) > 60 Random Glucose 86 Calcium 7.8 L Total Bilirubin 2.4 H AST 156 H ALT 120 H Alkaline Phosphatase 254 H D Total Protein 6.7 Albumin 2.8 L Globulin 3.9 Albumin/Globulin Ratio 0.7 L Alpha Fetoprotein 173.0 H Assessment & Plan - Assessment and Plan (Free Text) Plan: Pt seen and examined, agree with residents consult note. 56 year old male with polysubstance abuse admitted to detox unit, hep C with by history appears to have hepatocellular carcinoma s/p liver directed therapy and sorafenib treatment about 25 years ago in [facility]. Recommend checking AFP tumor marker and can have outpatient imaging to assess the extent of his disease. If he does in fact have HCC, it appears to be slow growing as he has not received treatment for years. Thank you for this interesting consult.
--- NOTE | 2017-05-29 06:54 | CP.PCM.PN ---
Subjective - Date & Time of Evaluation Date of Evaluation: 05/29/17 Time of Evaluation: 06:53 - Subjective Subjective: Medicine progress note for Dr. Sparks's service Patient was seen and examined at bedside in no acute distress. Patient appears slightly improved from yesterday; however, he still complains of diarrhea (less frequent), chills, fevers, and abdominal pain. Patient otherwise denies chest pain, nausea, vomiting, headaches, hallucinations, diaphoresis, leg pain/ swelling. Objective - Vital Signs/Intake and Output Vital Signs (last 24 hours): Temp Pulse Resp BP Pulse Ox 98.9 F 68 18 91/54 L 95 05/29/17 06:28 05/29/17 06:28 05/29/17 06:28 05/29/17 06:28 05/29/17 06:28 - Medications Medications: Current Medications Calcium Carbonate (Tums) 500 mg PO BID [facility] Last Admin: 05/28/17 18:13 Dose: 500 mg Clonidine HCl (Catapres) 0.1 mg PO ONCE PRN PRN Reason: Nausea/Vomiting Last Admin: 05/25/17 07:13 Dose: 0.1 mg Ergocalciferol (Drisdol 50,000 Intl Units Cap) 1 cap PO Q7D [facility] Last Admin: 05/26/17 10:45 Dose: 1 cap Famotidine (Pepcid) 20 mg PO BID [facility] Last Admin: 05/28/17 18:12 Dose: 20 mg Ibuprofen (Motrin Tab) 400 mg PO Q6H PRN PRN Reason: Pain, moderate (4-7) Last Admin: 05/27/17 14:13 Dose: 400 mg Lorazepam (Ativan) 1 mg PO Q12H [facility] PRN Reason: Taper Stop: 05/29/17 17:59 Last Admin: 05/28/17 18:13 Dose: 1 mg Lorazepam (Ativan) 1 mg PO Q6H PRN PRN Reason: Breakthrough alcohol wdw Methadone HCl (Methadone) 5 mg PO Q24H [facility] PRN Reason: Taper Stop: 05/30/17 08:59 Last Admin: 05/28/17 09:39 Dose: 5 mg Nicotine (Nicoderm Cq) 1 patch TD DAILY [facility] Last Admin: 05/28/17 10:01 Dose: 1 patch - Labs Labs: 05/28/17 08:35 05/28/17 08:35 PT 18.8 SECONDS (9.7-12.2) H 05/23/17 11:53 INR 1.6 05/23/17 11:53 - Additional Findings Additional findings: - Constitutional Appears: In No Acute Distress - Head Exam Head Exam: ATRAUMATIC, NORMOCEPHALIC - Eye Exam Eye Exam: EOMI - ENT Exam ENT Exam: Mucous Membranes Moist - Respiratory Exam Respiratory Exam: Clear to Auscultation Bilateral, NORMAL BREATHING PATTERN. absent: Rales, Rhonchi, Wheezes, Respiratory Distress - Cardiovascular Exam Cardiovascular Exam: REGULAR RHYTHM, +S1, +S2 - GI/Abdominal Exam GI & Abdominal Exam: Normal Bowel Sounds. absent: Distended, Firm, Soft, Tenderness - Extremities Exam Extremities exam: Positive for: pedal pulses present. Negative for: pedal edema , tenderness - Neurological Exam Neurological exam: Alert, Oriented x3 - Psychiatric Exam Psychiatric exam: Normal Affect - Skin Skin Exam: Dry, Intact, Normal Color, Warm Assessment and Plan - Assessment and Plan (Free Text) Plan: 56 year old male with a past medical history of hepatitis C, liver cirrhosis, liver carcinoma who was admitted for detox from alcohol and heroin abuse. Patient was not taken to detox due to hyponatremia. Patient transferred to detox on 05/26/17. Medicine team consulted. Plan: Alcohol withdrawal/ Heroin Detox -Patient transferred to detox on 05/26/17 -Management as per detox team -Continue CIWA Precautions -Continue Fall precautions -Seizure precautions -Ativan 1mg PO Q6 [facility] -Methadone protocol Fever -Resolved; last fever on 05/27 afternoon -Likely secondary to withdrawal and/or hepatitis A -Blood cx: negative -Urine cx: negative -Motrin 400mg PO Q6 prn given for fever/pain -Ice packs or hypothermic blanket may be used -CXR: diffuse increased interstitial lung markings; mild patchy increased markings at the right lung base. History of Liver Cancer -Patient was diagnosed 20 years ago. -Patient no longer receiving treatment due to financial constraints. -Consider Liver Specialist consult if necessary in the future. -Abdominal US (05/23): hepatic lesions compatible with hx of malignancy/ metastases -Hem/Onc consulted, Dr. Spencer; recs appreciated - likely hepatocellular carcinoma - treated with liver directed therapy and Nexavar in the past. - alpha feto protein elevated, 173 - outpatient follow up and treatment after discharge Liver Cirrhosis 2/2 to Alcohol Abuse -Patient currently not being followed by a specialist. -Stable -GI consulted, Dr. Hernandez, help appreciated Acute Hepatitis A -Hep A IgM Ab reactive, Hepatitis A Ab positive -supportive therapy -continue to monitor -GI consulted, Dr. Hernandez, help appreciated Elevated transaminases -likely secondary to liver cirrhosis, liver mets, alcohol abuse, hepatitis C, hepatitis A -avoid Tylenol, hepatotoxic medications -continue to monitor Thrombocytopenia -likely secondary to hx liver cirrhosis and liver mets -improved from 78 to 95 on 05/28/17 -HIV negative, Hep A, HepC positive -continue to monitor Prophylaxis -Pepcid 20mg BID -Regular diet Discussed with Dr. Sparks.
[2017-05-29 08:23] LABS: BASO # 0.1 K/uL (0.0-0.2); BASO % 1.4 % (0.0-2.0); EOS # 0.1 K/uL (0.0-0.7); EOS % 1.2 % (0.0-4.0); HEMOGLOBIN 13.7 g/dL (12.0-18.0); LYMPH # 1.7 K/uL (1.0-4.3); MEAN CELL VOLUME 90.3 fL (80.0-94.0); MEAN CORPUSCULAR HEMOGLOBIN 31.7 pg (27.0-31.0); MEAN CORPUSCULAR HGB CONC 35.1 g/dL (33.0-37.0); MONO # 0.7 K/uL (0.0-0.8); MONO % 12.2 % (0.0-10.0); NEUT # 3.3 K/uL (1.8-7.0); NEUT % 56.2 % (50.0-75.0); NRBC % 0.1 % (0.0-2.0); RBC 4.33 Mil/uL (4.40-5.90); RED CELL DISTRIBUTION WIDTH 15.5 % (11.5-14.5); WHITE BLOOD COUNT 5.9 K/uL (4.8-10.8)
[2017-05-29 08:35] LABS: ALT/SGPT 121 U/L (21-72); AST/SGOT 166 U/L (17-59); BLOOD UREA NITROGEN 17 mg/dL (9-20); CALCIUM 8.2 mg/dl (8.6-10.4); GFR AFRICAN-AMERICAN > 60; GFR NON-AFRICAN AMERICAN > 60
[2017-05-29 08:38] LABS: ALB/GLOB RATIO 0.7 (1.0-2.1)
[2017-05-29] MEDS: Calcium Carbonate 500 mg Chewable Antacid Tab PO SCH ×2 (09:30→17:57)
--- NOTE | 2017-05-29 12:13 | CP.PCM.PN ---
<Gianna Duran - Last Filed: 05/29/17 12:09> Subjective - Date & Time of Evaluation Date of Evaluation: 05/29/17 Time of Evaluation: 09:00 - Subjective Subjective: Heme/Onc Progress Note- Dr. Spencer's Service: Patient seen and examined at bedside this AM. Patient reports he is feeling better than yesterday. No more abdominal pain or nausea this AM. No other complaints at this time. Objective - Vital Signs/Intake and Output Vital Signs (last 24 hours): Temp Pulse Resp BP Pulse Ox 98.4 F 60 20 109/56 L 96 05/29/17 10:00 05/29/17 10:00 05/29/17 10:00 05/29/17 10:00 05/29/17 10:00 - Medications Medications: Current Medications Calcium Carbonate (Tums) 500 mg PO BID [facility] Last Admin: 05/29/17 09:30 Dose: 500 mg Clonidine HCl (Catapres) 0.1 mg PO ONCE PRN PRN Reason: Nausea/Vomiting Last Admin: 05/25/17 07:13 Dose: 0.1 mg Ergocalciferol (Drisdol 50,000 Intl Units Cap) 1 cap PO Q7D [facility] Last Admin: 05/26/17 10:45 Dose: 1 cap Famotidine (Pepcid) 20 mg PO BID [facility] Last Admin: 05/29/17 09:30 Dose: 20 mg Ibuprofen (Motrin Tab) 400 mg PO Q6H PRN PRN Reason: Pain, moderate (4-7) Last Admin: 05/27/17 14:13 Dose: 400 mg Lorazepam (Ativan) 1 mg PO Q12H [facility] PRN Reason: Taper Stop: 05/29/17 17:59 Last Admin: 05/29/17 06:50 Dose: Not Given Lorazepam (Ativan) 1 mg PO Q6H PRN PRN Reason: Breakthrough alcohol wdw Methadone HCl (Methadone) 5 mg PO Q24H [facility] PRN Reason: Taper Stop: 05/30/17 08:59 Last Admin: 05/29/17 09:30 Dose: 5 mg Nicotine (Nicoderm Cq) 1 patch TD DAILY [facility] Last Admin: 05/29/17 09:30 Dose: 1 patch - Labs Labs: 05/29/17 08:08 05/29/17 08:08 PT 18.8 SECONDS (9.7-12.2) H 05/23/17 11:53 INR 1.6 05/23/17 11:53 - Constitutional Appears: No Acute Distress - Head Exam Head Exam: NORMAL INSPECTION, NORMOCEPHALIC - Eye Exam Eye Exam: EOMI, Normal appearance - ENT Exam ENT Exam: Mucous Membranes Moist - Respiratory Exam Respiratory Exam: Clear to Ausculation Bilateral - Cardiovascular Exam Cardiovascular Exam: REGULAR RHYTHM, +S1, +S2 - GI/Abdominal Exam GI & Abdominal Exam: Soft. absent: Distended, Tenderness - Extremities Exam Extremities Exam: Full ROM - Neurological Exam Neurological Exam: Alert, Awake, Oriented x3 - Psychiatric Exam Psychiatric exam: Normal Mood - Skin Skin Exam: Dry, Intact, Warm Assessment and Plan (1) History of liver cancer Assessment & Plan: Likely hepatocellular carcinoma s/p liver directed therapy and sorafenib treatment 25 years ago in [place], [place] AFP elevated Recommend outpatient imaging to assess the extent of his disease Outpatient follow up and treatment when discharged Status: Acute (2) Thrombocytopenia Assessment & Plan: HIV negative. Hep A and Hep C positive. Patient also has history of alcohol abuse. Platelets improving. Status: Acute - Assessment and Plan (Free Text) Assessment: Patient seen and examined during rounds with Dr. Spencer. Recommendations above as per attending. Dalia Duran, PGY 3 <Shaun Spencer - Last Filed: 05/29/17 22:07> Objective - Vital Signs/Intake and Output Vital Signs (last 24 hours): Temp Pulse Resp BP Pulse Ox 98.4 F 78 20 99/65 L 97 05/29/17 19:35 05/29/17 19:35 05/29/17 19:35 05/29/17 19:35 05/29/17 19:35 - Medications Medications: Current Medications Calcium Carbonate (Tums) 500 mg PO BID [facility] Last Admin: 05/29/17 17:57 Dose: 500 mg Clonidine HCl (Catapres) 0.1 mg PO ONCE PRN PRN Reason: Nausea/Vomiting Last Admin: 05/25/17 07:13 Dose: 0.1 mg Ergocalciferol (Drisdol 50,000 Intl Units Cap) 1 cap PO Q7D [facility] Last Admin: 05/26/17 10:45 Dose: 1 cap Famotidine (Pepcid) 20 mg PO BID [facility] Last Admin: 05/29/17 17:57 Dose: 20 mg Ibuprofen (Motrin Tab) 400 mg PO Q6H PRN PRN Reason: Pain, moderate (4-7) Last Admin: 05/27/17 14:13 Dose: 400 mg Lorazepam (Ativan) 1 mg PO Q6H PRN PRN Reason: Breakthrough alcohol wdw Methadone HCl (Methadone) 5 mg PO Q24H [facility] PRN Reason: Taper Stop: 05/30/17 08:59 Last Admin: 05/29/17 09:30 Dose: 5 mg Nicotine (Nicoderm Cq) 1 patch TD DAILY [facility] Last Admin: 05/29/17 09:30 Dose: 1 patch - Labs Labs: 05/29/17 08:08 05/29/17 08:08 PT 18.8 SECONDS (9.7-12.2) H 05/23/17 11:53 INR 1.6 05/23/17 11:53 Assessment and Plan - Assessment and Plan (Free Text) Assessment: Pt seen and examined, agree with residents note.
--- NOTE | 2017-05-29 14:59 | PCM.PYCHPN ---
Psychiatric Progress Note - Psychiatric Progress Note Patient seen today, length of contact: 16 min Patient Chief Complaint: "Still very tired" Problems Identified/Issues Discussed: The pt is seen, chart reviewed, case discussed with staff. Support given, psychoed used NM given He is still fatigued but not lethargic any more Hep A sxs are disappearing - eyes are not jaundiced, has mild GI issues, urine was next to his bed and was darkish-yellow, but not brown or red. Tremors are gone Sleep is "so so" DC tomorrow Medication Change: Yes (detox changes daily) Medical Record Reviewed: Yes Mental Status Examination - Cognitive Function Orientation: Person, Place, Situation, Time Memory: Intact Attention: Poor Concentration: Poor Association: WNL - Mood Mood: Anxious - Affect Affect: Constricted - Speech Speech: Appropriate - Formal Thought Process Formal Thought Process: No Impairment - Suicidal Ideation Suicidal Ideation: No - Homicidal Ideation Homicidal Ideation: No Goal/Treatment Plan - Goal/Treatment Plan Need for Continued Stay: Discharge may exacerbated symptoms, Severe functional impairment (still bed-bound) Progress Toward Problem(s) and Goals/Treatment Plan: Continue detox Close observation Labs are ordered Ativan taper Methadone taper ending but esme extend one more day due to sxs prn meds Indiv tx and groups Refer to AA/IOP or rehab Not a candidate for MAT Med consult appreciated Estimated Date of D/C: 05/30/17
[2017-05-30 06:08] VITALS: RESP 18
--- NOTE | 2017-05-30 07:39 | CP.PCM.PN ---
<Susie Stoner - Last Filed: 05/30/17 11:15> Subjective - Date & Time of Evaluation Date of Evaluation: 05/30/17 Time of Evaluation: 07:38 - Subjective Subjective: Medicine progress note for Dr. Sparks's service Patient was seen and examined at bedside in no acute distress. Patient was eating without difficulty. Patient reports he is feeling better and withdrawal symptoms, diarrhea, and fatigue has resolved. Patient denies chest pain, nausea , vomiting, headaches, hallucinations, diaphoresis, leg pain/swelling. Objective - Vital Signs/Intake and Output Vital Signs (last 24 hours): Temp Pulse Resp BP Pulse Ox 98.4 F 55 L 18 108/67 95 05/30/17 06:07 05/30/17 06:07 05/30/17 06:07 05/30/17 06:07 05/30/17 06:07 - Medications Medications: Current Medications Calcium Carbonate (Tums) 500 mg PO BID [facility] Last Admin: 05/29/17 17:57 Dose: 500 mg Clonidine HCl (Catapres) 0.1 mg PO ONCE PRN PRN Reason: Nausea/Vomiting Last Admin: 05/25/17 07:13 Dose: 0.1 mg Ergocalciferol (Drisdol 50,000 Intl Units Cap) 1 cap PO Q7D [facility] Last Admin: 05/26/17 10:45 Dose: 1 cap Famotidine (Pepcid) 20 mg PO BID [facility] Last Admin: 05/29/17 17:57 Dose: 20 mg Ibuprofen (Motrin Tab) 400 mg PO Q6H PRN PRN Reason: Pain, moderate (4-7) Last Admin: 05/27/17 14:13 Dose: 400 mg Lorazepam (Ativan) 1 mg PO Q6H PRN PRN Reason: Breakthrough alcohol wdw Methadone HCl (Methadone) 5 mg PO Q24H [facility] PRN Reason: Taper Stop: 05/30/17 08:59 Last Admin: 05/29/17 09:30 Dose: 5 mg Nicotine (Nicoderm Cq) 1 patch TD DAILY [facility] Last Admin: 05/29/17 09:30 Dose: 1 patch - Labs Labs: 05/29/17 08:08 05/29/17 08:08 PT 18.8 SECONDS (9.7-12.2) H 05/23/17 11:53 INR 1.6 01/18/18 11:53 - Additional Findings Additional findings: - Constitutional Appears: In No Acute Distress - Head Exam Head Exam: ATRAUMATIC, NORMOCEPHALIC - Eye Exam Eye Exam: EOMI - ENT Exam ENT Exam: Mucous Membranes Moist - Respiratory Exam Respiratory Exam: Clear to Auscultation Bilateral, NORMAL BREATHING PATTERN. absent: Rales, Rhonchi, Wheezes, Respiratory Distress - Cardiovascular Exam Cardiovascular Exam: REGULAR RHYTHM, +S1, +S2 - GI/Abdominal Exam GI & Abdominal Exam: Normal Bowel Sounds. absent: Distended, Firm, Soft, Tenderness - Extremities Exam Extremities exam: Positive for: pedal pulses present. Negative for: pedal edema , tenderness - Neurological Exam Neurological exam: Alert, Oriented x3 - Psychiatric Exam Psychiatric exam: Normal Affect - Skin Skin Exam: Dry, Intact, Normal Color, Warm Assessment and Plan - Assessment and Plan (Free Text) Plan: Plan: 56 year old male with a past medical history of hepatitis C, liver cirrhosis, liver carcinoma who was admitted for detox from alcohol and heroin abuse. Patient was not taken to detox due to hyponatremia. Patient transferred to detox on 05/26/17. Medicine team consulted. Plan: Alcohol withdrawal/ Heroin Detox -Patient transferred to detox on 05/26/17 -Management as per detox team -Continue CIWA Precautions -Continue Fall precautions -Seizure precautions -Ativan 1mg PO Q6 [facility] -Methadone protocol Fever -Resolved; last fever on 05/27 afternoon -Likely secondary to withdrawal and/or hepatitis A -Blood cx: negative -Urine cx: negative -Motrin 400mg PO Q6 prn given for fever/pain -Ice packs or hypothermic blanket may be used -CXR: diffuse increased interstitial lung markings; mild patchy increased markings at the right lung base. History of Liver Cancer -Patient was diagnosed 20 years ago. -Patient no longer receiving treatment due to financial constraints. -Consider Liver Specialist consult if necessary in the future. -Abdominal US (05/23): hepatic lesions compatible with hx of malignancy/ metastases -Hem/Onc consulted, Dr. Spencer; recs appreciated - likely hepatocellular carcinoma - treated with liver directed therapy and Nexavar in the past. - alpha feto protein elevated, 173 - outpatient follow up and treatment after discharge Liver Cirrhosis 2/2 to Alcohol Abuse -Patient currently not being followed by a specialist. -Stable -GI consulted, Dr. Hernandez, help appreciated Acute Hepatitis A -Hep A IgM Ab reactive, Hepatitis A Ab positive -supportive therapy -continue to monitor -GI consulted, Dr. Hernandez, help appreciated Elevated transaminases -likely secondary to liver cirrhosis, liver mets, alcohol abuse, hepatitis C, hepatitis A -avoid Tylenol, hepatotoxic medications -continue to monitor Thrombocytopenia -likely secondary to hx liver cirrhosis and liver mets -improved from 78 to 95 on 05/28/17 -HIV negative, Hep A, HepC positive -continue to monitor Prophylaxis -Pepcid 20mg BID -Regular diet Dispo: Patient will be discharged from detox today. Medicine team signing off. Patient must follow up with PMD and with oncology, Dr Spencer, for continued outpatient care. Discussed with Dr. Sparks. <Taye Sparks Jr. - Last Filed: 05/30/17 19:34> Objective - Vital Signs/Intake and Output Vital Signs (last 24 hours): Temp Pulse Resp BP Pulse Ox 97.2 F L 68 18 123/77 98 05/30/17 09:59 05/30/17 09:59 05/30/17 09:59 05/30/17 09:59 05/30/17 09:59 - Labs Labs: 05/30/17 08:39 05/30/17 08:39 PT 18.8 SECONDS (9.7-12.2) H 05/23/17 11:53 INR 1.6 05/23/17 11:53 Attending/Attestation - Attestation I have personally seen and examined this patient.: Yes I have fully participated in the care of the patient.: Yes I have reviewed all pertinent clinical information, including history, physical exam and plan: Yes Notes (Text): 05/30/17 19:34 Agree with resident note and plan of care
--- NOTE | 2017-05-30 07:57 | PCM.PYCHDC ---
Mental Status Examination - Mental Status Examination Orientation: Person Discharge Summary - Discharge Note Laboratory Data: Abnormal Lab Results 05/29/17 05/29/17 08:08 08:08 WBC 5.9 RBC 4.33 L Hgb 13.7 Hct 39.1 MCV 90.3 MCH 31.7 H MCHC 35.1 RDW 15.5 H Plt Count 108 L MPV 10.0 Neut % (Auto) 56.2 Lymph % (Auto) 29.0 [place] % (Auto) 12.2 H Eos % (Auto) 1.2 Baso % (Auto) 1.4 Neut # 3.3 Lymph # 1.7 [place] # 0.7 Eos # 0.1 Baso # 0.1 Sodium 127 L Potassium 4.2 Chloride 101 Carbon Dioxide 23 Anion Gap 8 L BUN 17 Creatinine 0.8 Est GFR ( Amer) > 60 Est GFR (Non-Af Amer) > 60 Random Glucose 89 Calcium 8.2 L Total Bilirubin 2.8 H AST 166 H ALT 121 H Alkaline Phosphatase 242 H Total Protein 7.0 Albumin 3.0 L Globulin 4.0 H Albumin/Globulin Ratio 0.7 L Consultations:: List each consultation separately and include: 1. Reason for request. 2. Findings. 3. Follow-up Summary of Hospital Course include:: 1. Description of specific treatment plan utilized for patients during their course of treatmen. 2. Summarize the time- course for resolution of acute symptoms and/or regressed behaviors. 3. Describe issues identified and worked on during hospitalization. 4. Describe medication utilized. 5. Describe medical problems identified and treated. 6. Reassessment of suicide risk Summary of Hospital Course: The pt is seen, chart reviewed and case discussed On admission: Consult was requested for his alcohol and opioid use. He is a 56 yo LM, single with children. Very poor historian due to worsening cognition, sedated and somewhat confused He is put on ativan taper for alcohol but methadone taper was not started as he did not have significant withdrawal yesterday. However, now, he is withdrawing from both alcohol and opioids. He is also running a fever and may have an infection. On top of that his Na is low, liver is impaired (liver cancer confirmed and had been treated in the past; r/o hepatitis). Therefore, he is likely getting into delirium from multiple causes. He reported that he uses cocaine and 10 bags heroin for "years" both intranasally. He was not clear about alcohol - "3 cans of 33 oz" but it may be more. No hx of DTs or seizures - needs to be confirmed Denies psych hx Medical - liver cancer Family psych or addiction unknown Hospital course: The pt was admitted and started on treatment with psychotherapy, support, psychoeducation and medications. He was transferred from medical floor PA and CBT used. The pt attended groups and activities, as well as milieu therapy. All the risks and benefits of medications are discussed and the patient understood and agreed. The pt improved with the treatments provided. After care discussed with the patient. He will go to [facility] methadone program - Final Diagnosis (DSM 5) Condition upon Discharge: STABLE Disposition: HOME/ ROUTINE Follow-up Treatment Plan: Continue below medications after discharge. Follow after care plan as discussed. Use relapse prevention skills Return to ER or call 911 if suicidal, homicidal or symptoms relapse. Stay away from stress, alcohol and drugs. See primary doctor regularly and get labs. Prescriptions/Medication Reconciliation: Calcium Carbonate [Tums] 500 mg PO BID #60 ctb Ergocalciferol [Drisdol 50,000 Intl Units Cap] 1 cap PO Q7D #7 cap Famotidine [Pepcid] 20 mg PO BID #60 tab Folic Acid 1 mg PO DAILY #30 tab Multivitamins [Hexavitamin] 1 tab PO DAILY #30 tab Nicotine 21 mg/24 hr [Nicoderm Cq] 1 patch TD DAILY #30 patch Thiamine [Vitamin B1 Tab] 100 mg PO DAILY #30 tab
[2017-05-30 08:54] LABS: BASO # 0.1 K/uL (0.0-0.2); BASO % 1.4 % (0.0-2.0); EOS # 0.1 K/uL (0.0-0.7); EOS % 1.8 % (0.0-4.0); HEMOGLOBIN 14.3 g/dL (12.0-18.0); LYMPH # 1.8 K/uL (1.0-4.3); LYMPH % 34.2 % (20.0-40.0); MEAN CELL VOLUME 91.3 fL (80.0-94.0); MEAN CORPUSCULAR HEMOGLOBIN 32.1 pg (27.0-31.0); MEAN CORPUSCULAR HGB CONC 35.1 g/dL (33.0-37.0); MEAN PLATELET VOLUME 10.3 fL (7.2-11.7); MONO # 0.7 K/uL (0.0-0.8); MONO % 13.1 % (0.0-10.0); NEUT # 2.6 K/uL (1.8-7.0); NEUT % 49.5 % (50.0-75.0); NRBC % 0.1 % (0.0-2.0); RBC 4.46 Mil/uL (4.40-5.90); RED CELL DISTRIBUTION WIDTH 15.6 % (11.5-14.5); WHITE BLOOD COUNT 5.2 K/uL (4.8-10.8)
[2017-05-30 09:12] LABS: ALBUMIN 3.1 g/dL (3.5-5.0); ALT/SGPT 119 U/L (21-72); AST/SGOT 167 U/L (17-59); BLOOD UREA NITROGEN 17 mg/dL (9-20); CALCIUM 8.3 mg/dl (8.6-10.4); GFR AFRICAN-AMERICAN > 60; GFR NON-AFRICAN AMERICAN > 60
[2017-05-30 09:23] LABS: ALB/GLOB RATIO 0.7 (1.0-2.1)
[2017-05-30] MEDS ORDERED: Multiple Vitamins Tab PO SCH (10:00)
[2017-05-30 10:02] VITALS: BP 123/77; PULSE 68; TEMP 97.2; O2SAT 98
[2017-05-30] MEDS: Calcium Carbonate 500 mg Chewable Antacid Tab PO SCH (10:32)
== END 2017-05-30 12:05 | disposition home or self-care (01) | DRG 895 ==
LOC: C.ER 01:18 → C.9E 05:58 → C.3T 06:12 → C.7D 05-26 14:41
PROVIDERS: ADMIT Psychiatry & Neurology Psychiatry; ATTEND Internal Medicine
PROC: HZ2ZZZZ Detoxification Services for Substance Abuse Treatment (ICD-10-PCS; principal; 2017-05-26)
PROC: HZ59ZZZ Individual Psychotherapy for Substance Abuse Treatment, Supportive (ICD-10-PCS; 2017-05-26)
PROC: HZ46ZZZ Group Counseling for Substance Abuse Treatment, Psychoeducation (ICD-10-PCS; 2017-05-26)
DX: F10.230 Alcohol dependence with withdrawal, uncomplicated (principal); E87.1 Hypo-osmolality and hyponatremia; F11.23 Opioid dependence with withdrawal; K70.30 Alcoholic cirrhosis of liver without ascites; D69.59 Other secondary thrombocytopenia; C22.9 Malignant neoplasm of liver, not specified as primary or secondary; B15.9 Hepatitis A without hepatic coma; B19.20 Unspecified viral hepatitis C without hepatic coma; F14.90 Cocaine use, unspecified, uncomplicated; F17.210 Nicotine dependence, cigarettes, uncomplicated

== ENCOUNTER 2017-08-01 10:47 | Emergency (ER) | payer MEDICARE ==
[2017-08-01 10:47] VITALS: BMI 27.8
--- NOTE | 2017-08-01 11:15 | C.PDOC ---
History Of Present Illness 56 year old male presents to ED with complaints of right knee pain for 2 days. He states his knee has been aching and hurts to bend and walk. He noticed swelling last night. He denies any fall or injury to knee. Time Seen by Provider: 08/01/17 11:10 Chief Complaint (Nursing): Lower Extremity Problem/Injury History Per: Patient History/Exam Limitations: no limitations Onset/Duration Of Symptoms: Days (2) Current Symptoms Are (Timing): Still Present Past Medical History Reviewed: Historical Data, Nursing Documentation, Vital Signs Vital Signs: Last Vital Signs Temp 97.9 F 08/01/17 12:15 Pulse 60 08/01/17 12:15 Resp 18 08/01/17 12:15 BP 143/74 08/01/17 12:15 Pulse Ox 97 08/01/17 12:15 - [facility] Procedures DETOXIFICATION SERVICES FOR SUBSTANCE ABUSE TREATMENT (05/23/17) GROUP FIELD MAP EDITOR FOR SUBSTANCE ABUSE TREATMENT, PSYCHOEDUCATION (05/23/17) INDIV PSYCHOTHERAPY FOR SUBSTANCE ABUSE TREATMENT, SUPPORT (05/23/17) Family History: States: Unknown Family Hx - Social History Hx Tobacco Use: Yes Hx Alcohol Use: Yes (4 cans of beer/day) Hx Substance Use: Yes - Immunization History Hx Tetanus Toxoid Vaccination: No Hx Influenza Vaccination: No Hx Pneumococcal Vaccination: No Review Of Systems Except As Marked, All Systems Reviewed And Found Negative. Musculoskeletal: Positive for: Other (knee pain) Physical Exam - Physical Exam Appears: Non-toxic, No Acute Distress Skin: Warm, Dry, No Ecchymosis Head: Atraumatic, Normacephalic Eye(s): bilateral: Normal Inspection Neck: Normal ROM Chest: Symmetrical Extremity: No Calf Tenderness, No Deformity, Other (Right knee: tenderness to anteromedial knee, mild swelling suprapatellar knee, pain with flexion, no crepitus, no tactile warmth) Neurological/Psych: Oriented x3, Normal Speech ED Course And Treatment O2 Sat by Pulse Oximetry: 94 Medical Decision Making Medical Decision Making: Impression: right knee pain Plan: xray of knee, Toradol IM Progress: Xray reviewed showing mild swelling, no fracture or dislocation RE-Eval: Patient reports mild improvement of pain. Knee brace was applied. Patient instructed to take analgesic as needed and to follow up with PCP or orthopedic if pain persists Disposition Counseled Patient/Family Regarding: Need For Followup, Rx Given - Disposition Referrals: Abby Sánchez MD [Staff Provider] - Disposition: HOME/ ROUTINE Disposition Time: 12:01 Condition: IMPROVED Additional Instructions: Your prescription was sent to [facility] pharmacy Take Meloxicam daily for pain, can take up to 2 pills per day. Follow up with the clinic in 2-5 days for further evaluation. Prescriptions: Meloxicam 7.5 mg PO DAILY PRN #14 tablet PRN Reason: Pain, Moderate (4-7) Instructions: Knee Pain (DC) Forms: [facility] (Congolese) - POA Present On Arrival: None - Clinical Impression Clinical Impression: Arthralgia of right knee
[2017-08-01 12:49] VITALS: BP 143/74; PULSE 60; RESP 18; TEMP 97.9; O2SAT 94
--- NOTE | 2017-08-01 15:58 | RAD ---
PROCEDURE: Right Knee Radiographs. HISTORY: pain and swelling for 2 days, no injury COMPARISON: None. FINDINGS: BONES: Tibial spine spurring. Intercondylar osseous hypertrophic changes also suggested. Tiny posterior patellar osteophytes. No fracture. JOINTS: Osteoarthrosis JOINT EFFUSION: Present OTHER FINDINGS: Atherosclerotic vascular calcifications present. . IMPRESSION: No fracture or lytic lesion. Tricompartmental osteoarthrosis Joint effusion
== END 2017-08-01 12:18 | disposition home or self-care (01) ==
LOC: C.ER 10:47
DX: M25.561 Pain in right knee (principal)
CPT/HCPCS: 73562; 96372; 99283; J1885